=== PATIENT | female | born 1945 | race Hispanic/Latino ===

== ENCOUNTER 2021-01-09 10:00 | Inpatient (IN) | payer MEDICARE, MEDICAID, SELFPAY ==
[2021-01-09] VITALS (16 sets, daily range): BP systolic 80–149; BP diastolic 43–82; PULSE 90–106; RESP 28–42; TEMP 36–38.6; O2SAT 88–97; BMI 53.3
--- NOTE | ~2021-01-09 | XR_ITS ---
EXAMINATION: XR chest 1V portable DATE: 01/09/2021 11:02 INDICATION: Congestive heart failure, crackles and hypoxia TECHNIQUE: frontal view of the chest was obtained. COMPARISON: Chest radiograph dated 11/04/2018 FINDINGS: Opacities in the left lower lung zone and to lesser degree at the right lung base. No pleural effusio n or pneumothorax. Cardiomegaly. IMPRESSION: 1. Opacities in the bilateral lower lung zones, left greater than right which could represent atelect asis, pneumonia, pulmonary edema or some combination thereof. 2. Cardiomegaly. Reviewed, dictated and finalized at location A. IMPRESSION: 1. Opacities in the bilateral lower lung zones, left greater than right which c ould represent atelectasis, pneumonia, pulmonary edema or some combination ther eof. 2. Cardiomegaly.
--- NOTE | ~2021-01-09 | XR_ITS ---
EXAMINATION: XR chest 1V portable DATE: 01/14/2021 10:37 INDICATION: Shortness of breath. Pulmonary edema. TECHNIQUE: frontal view of the chest was obtained. COMPARISON: Chest radiograph dated 01/11/2021 FINDINGS: Increased consolidation at the left lung base. Otherwise no significant change in patchy airspace opa cities throughout the right lung and in the left mid and lower lung zones. No pneumothorax or definit marco pleural effusion. The cardiomediastinal silhouette is normal. Visualized bones and soft tissues a re unremarkable. IMPRESSION: 1. Unchanged patchy bilateral airspace opacities and increasing consolidation at the left lung base w hich could represent atelectasis and/or pneumonia. Reviewed, dictated and finalized at location A. IMPRESSION: 1. Unchanged patchy bilateral airspace opacities and increasing consolidation a t the left lung base which could represent atelectasis and/or pneumonia.
--- NOTE | ~2021-01-09 | XR_ITS ---
XR chest 1V portable DATE: 01/11/2021 13:12 INDICATION: Shortness of breath, wheezing TECHNIQUE: Portable AP chest on 01/11/2021 at 1308 hours COMPARISON: 01/20/2021 portable AP chest at 2241 hours FINDINGS: Cardiomegaly. Aortic arch calcification. There is pulmonary vascular congestion and redistribution. There are patchy bilateral pulmonary infil trates which are more prominent centrally and in the lung bases, especially at the left lung base, wh ich may be due to pulmonary edema. Prominence of the minor fissure suggests subpleural edema. Pneumon ia or less likely aspiration are not excluded. No significant pleural effusion. No pneumothorax. Diffuse osteopenia. Degenerative spurring of the thoracic spine. IMPRESSION: Cardiomegaly, pulmonary vascular congestion, possible minor fissure and bilateral pulmona ry infiltrates, suggesting congestive heart failure pulmonary edema Pneumonia is not excluded Reviewed, dictated and finalized at location A. IMPRESSION: Cardiomegaly, pulmonary vascular congestion, possible minor fissure and bilateral pulmonary infiltrates, suggesting congestive heart failure pulmo nary edema Pneumonia is not excluded
--- NOTE | ~2021-01-09 | CT_ITS ---
EXAMINATION: CT diagnostic chest wo con DATE: 01/10/2021 09:26 INDICATION: Shortness of breath TECHNIQUE: Computed tomography (CT) of the chest was performed without intravenous contrast. Automate d exposure control and iterative reconstruction technique were employed. Exam dose: 837.29 mGy-cm to hussein exam DLP. COMPARISON: 01/09/2021 portable AP chest FINDINGS: Left upper extremity PIC catheter in superior vena cava. There is thoracic aortic and great vessel and coronary artery calcification. No thoracic aortic aneur ysm. There is mild cardiomegaly. There is no pericardial effusion. No pleural effusion. There are scattered nonenlarged mediastinal lymph nodes. Again noted is prominent bilateral lower lobe atelectasis with air bronchograms, involving the medial basilar right lower lobe and to a greater extent the left lower lobe. Diffuse idiopathic skeletal hyperostosis of the thoracic spine. No suspicious osteolytic or osteoblas tic lesions are noted. IMPRESSION: Bilateral lower lobe atelectasis/infiltrate with air bronchograms, left greater than rig ht Reviewed, dictated and finalized at Location A. Reviewed, dictated and finalized at location A. IMPRESSION: Bilateral lower lobe atelectasis/infiltrate with air bronchograms, left greater than right
--- NOTE | ~2021-01-09 | XR_ITS ---
XR chest 1V portable DATE: 01/10/2021 22:44 INDICATION: Shortness of breath TECHNIQUE: Portable upright AP chest on 01/10/2021 at 2241 hours COMPARISON: 01/10/2021 CT chest 01/09/2021 portable AP chest FINDINGS: There are persistent relatively stable bilateral lower lobe infiltrates and/atelectasis, le ft greater than right. Aortic calcification. No pleural effusion or pneumothorax. Diffuse osteopenia. IMPRESSION: Persistent bilateral lower lobe infiltrates and/atelectasis, not significantly changed si nce 01/09/2021 Reviewed, dictated and finalized at location A. IMPRESSION: Persistent bilateral lower lobe infiltrates and/atelectasis, not si gnificantly changed since 01/09/2021
--- NOTE | ~2021-01-09 | US_ITS ---
EXAMINATION: US renal BI DATE: 01/09/2021 17:35 INDICATION: Acute kidney injury. TECHNIQUE: Multiple ultrasound grayscale images of the kidneys were obtained. COMPARISON: None. FINDINGS: The right kidney measures 10.3 x 4.6 x 5.5 cm. The left kidney measures 10.5 x 4.0 x 4.8 cm. The kidn eys demonstrate normal parenchymal echogenicity. There is no hydronephrosis. The bladder is decompres sed. IMPRESSION: 1. Normal kidneys. No hydronephrosis. Reviewed, dictated and finalized at location A.
--- NOTE | ~2021-01-09 | XR_ITS ---
EXAMINATION: XR chest PICC line DATE: 01/09/2021 18:16 INDICATION: Central line placement. TECHNIQUE: A single frontal view of the chest was obtained. COMPARISON: Chest single view at 10:52 AM FINDINGS: There are airspace opacities in right lower lung zone and left mid and lower lung zones. No pleural effusion or pneumothorax. The heart size is normal. A left upper extremity peripherally inse rted central venous catheter (PICC) is seen with tip at the superior cavoatrial junction. IMPRESSION: 1. PICC tip at the superior cavoatrial junction. 2. Stable airspace opacities in right lower lung zone and left mid and lower lung zones, consistent w ith atelectasis versus pneumonia. Reviewed, dictated and finalized at location A. IMPRESSION: 1. PICC tip at the superior cavoatrial junction. 2. Stable airspace opacities in right lower lung zone and left mid and lower alan ng zones, consistent with atelectasis versus pneumonia.
--- NOTE | 2021-01-09 10:19 | ECG_ITS ---
Measurements Intervals [place] Rate: 104 P: 16 MO: 128 QRS: -14 QRSD: 77 T: 58 QT: 361 QTc: 476 Interpretive Statements SINUS TACHYCARDIA INCOMPLETE RIGHT BUNDLE BRANCH BLOCK DELAYED PRECORDIAL R/S TRANSITION CONSIDER INFERIOR INFARCT, AGE INDETERMINATE BASELINE WANDER- I, II, III, AVR, AVL, AVF, V1-V6 ABNORMAL ECG Electronically Signed On 01-09-2021 10:31:31 CDT by Mustapha Woods D.O.
[2021-01-09 10:34] LABS: Hematocrit 32.7 % (37.0-47.0); Mean Corpuscular HGB Conc 30.6 g/dl (32-36); Mean Corpuscular Hemoglobin 27.5 pg (26-34); Mean Corpuscular Volume 90.1 fl (80-100); Platelet Count Result 297 k/mm3 (150-375); Red Blood Count 3.63 M/mm3 (4.2-5.4); Red Cell Distribution Width 14.1 % (11.5-14.5); White Blood Count 33.2 K/mm3 (4.5-10.0)
--- NOTE | 2021-01-09 10:38 | ED.SOB ---
HPI - SOB/Dyspnea General Chief Complaint: Shortness of Breath/Dyspnea Stated Complaint: hypoxic Time Seen by Provider: 01/09/21 10:25 Source: patient, family and RN notes reviewed Limitations: language barrier History of Present Illness HPI Narrative: Patient presents with increased, productive cough, general weakness and lethargy over the last 48 hours. Patient grand grand child tested positive for RSV recently. Patient is fully vaccinated for COVID-19, Ashish and Ashish last year. Patient on oxygen as needed, history of hypertension, hyperlipidemia, hypothyroidism, anxiety, depression. Patient also on water pills for leg edema and she not been taking it lately. Patient is on baby aspirin. No history of OR or stroke. Related Data Allergies Allergy/AdvReac Type Severity Reaction Status Date / Time codeine Allergy Unknown Nervousness Verified 02/07/18 22:50 Course Consultations Consultation #1: [facility], accepted patient consult for Dr. Lni Date: 01/09/21 Time: 11:32 Vital Signs Vital signs: Vital Signs Temperature 36.0 C L 01/09/21 10:13 Pulse Rate 106 H 01/09/21 10:13 Respiratory Rate 41 H 01/09/21 10:13 Blood Pressure 102/79 01/09/21 10:13 Pulse Oximetry 92 01/09/21 10:13 Temperature 36.0 C L 01/09/21 10:13 Pulse Rate 102 H 01/09/21 11:28 Respiratory Rate 42 H 01/09/21 11:28 Blood Pressure 104/51 L 01/09/21 11:28 Pulse Oximetry 95 01/09/21 11:28 MDM - SOB/Dyspnea Lab Data Result diagrams: 01/09/21 10:29 01/09/21 10:29 Labs: Lab Results 01/09/21 01/09/21 01/09/21 Range/Units 10:29 10:29 10:29 WBC 33.2 H (4.5-10.0) K/mm3 RBC 3.63 L (4.2-5.4) M/mm3 Hgb 10.0 L (12.0-15.0) g/dL Hct 32.7 L (37.0-47.0) % MCV 90.1 (80-100) fl MCH 27.5 (26-34) pg MCHC 30.6 L (32-36) g/dl RDW 14.1 (11.5-14.5) % Plt Count 297 (150-375) k/mm3 MPV 9.0 (7.4-10.4) fl Immature Gran % (Auto) Not Reportable Neut % (Auto) Not Reportable Lymph % (Auto) Not Reportable Garfield % (Auto) Not Reportable Eos % (Auto) Not Reportable Baso % (Auto) Not Reportable Lymph # (Auto) Not Reportable Garfield # (Auto) Not Reportable Eos # (Auto) Not Reportable Baso # (Auto) Not Reportable Abs Immat Gran (auto) Not Reportable Absolute Neuts (auto) Not Reportable Absolute Nucleated RBC Not Reportable Nucleated RBC % Not Reportable Platelet Estimate Pending PT 14.4 (11.1-14.7) Seconds INR 1.1 APTT 27.2 (22.3-36.8) SECONDS Sodium 133 L (137-145) mmol/L Potassium 4.5 (3.4-5.0) mmol/L Chloride 95 L (98-107) mmol/L Carbon Dioxide 24 (22-30) mmol/L Anion Gap 14 (8-16) mmol/L BUN 28 H (7-17) mg/dL Creatinine 2.80 H (0.7-1.0) mg/dL Estim Creat Clear Calc 20 ml/min Estimated GFR 17 L (59 - ) Glucose 77 (65-110) mg/dL Calcium 9.0 (8.4-10.2) mg/dL Magnesium (1.6-2.3) mg/dL Total Bilirubin (0.2-1.3) mg/dL Direct Bilirubin (0-0.3) mg/dL AST (14-36) U/L ALT (4-35) U/L Alkaline Phosphatase (38-126) U/L Troponin I 0.095 H* (0.000-0.034) ng/mL NT-Pro-B Natriuret Pep 09850 H (5-100) pg/mL Total Protein (6.3-8.2) g/dL Albumin (3.5-5.1) g/dL 01/09/21 01/09/21 Range/Units 10:29 10:29 WBC (4.5-10.0) K/mm3 RBC (4.2-5.4) M/mm3 Hgb (12.0-15.0) g/dL Hct (37.0-47.0) % MCV (80-100) fl MCH (26-34) pg MCHC (32-36) g/dl RDW (11.5-14.5) % Plt Count (150-375) k/mm3 MPV (7.4-10.4) fl Immature Gran % (Auto) Neut % (Auto) Lymph % (Auto) Garfield % (Auto) Eos % (Auto) Baso % (Auto) Lymph # (Auto) Garfield # (Auto) Eos # (Auto) Baso # (Auto) Abs Immat Gran (auto) Absolute Neuts (auto) Absolute Nucleated RBC Nucleated RBC % Platelet Estimate PT (11.1-14.7) Seconds INR
[2021-01-09 10:46] LABS: INR 1.1; Prothrombin Time 14.4 Seconds (11.1-14.7)
[2021-01-09 10:47] LABS: Partial Thromboplastin Time 27.2 SECONDS (22.3-36.8)
[2021-01-09 10:56] LABS: Anion Gap 14 mmol/L (8-16); Blood Urea Nitrogen 28 mg/dL (7-17); Carbon Dioxide 24 mmol/L (22-30); Chloride 95 mmol/L (98-107); Estimated CRCL calculation 20 ml/min; Estimated Glomerular Filt Rate 17; Glucose 77 mg/dL (65-110); Potassium 4.5 mmol/L (3.4-5.0); Sodium 133 mmol/L (137-145)
[2021-01-09 10:58] LABS: Alanine Aminotransferase 55 U/L (4-35); Albumin Level 3.8 g/dL (3.5-5.1); Alkaline Phosphatase 67 U/L (38-126); Aspartate Amino Transferase 84 U/L (14-36); Bilirubin,Total 1.9 mg/dL (0.2-1.3)
[2021-01-09 11:18] LABS: NT Pro B Type Natriuretic Pept 13000 pg/mL (5-100); Troponin I 0.095 ng/mL (0.000-0.034)
--- NOTE | 2021-01-09 11:23 | PCRCNOTE ---
G attempted by [address] Samuel bolaños to obtain.. Dr. Baker stated he will look at X-Ray.
[2021-01-09 11:30] LABS: Magnesium 1.5 mg/dL (1.6-2.3)
[2021-01-09 11:50] LABS: Band Neutrophils Percent 14 % (0-6); Lymphocytes Absolute Manual 3.65 K/mm3 (1.1-4.5); Metamyelocytes Percent 5 %; Monocytes Absolute Manual 0.33 K/mm3 (0.1-0.90); Monocytes Percent Manual 1 % (3-9); Neutrophils Absolute Manual 27.55 K/mm3 (1.7-7.2); Neutrophils Percent Manual 69 % (46-73); Total Cells Counted 100
[2021-01-09 11:51] LABS: Platelet Estimate Adequate (Adequate)
[2021-01-09 11:52] LABS: Hypochromasia 1+ (NORMAL)
[2021-01-09] MEDS: SODIUM CHLORIDE 0.9% IV 1,000 ML 999 ML IV CONT ×2 (12:18→15:13)
[2021-01-09 12:43] LABS: Lactic Acid Reflex 5.6 mmol/L (0.7-2.1)
--- NOTE | 2021-01-09 13:50 | WPDCNINT ---
Assessment and Plan Assessment and plan (1) Sepsis: Code(s): A41.9 - Sepsis, unspecified organism Status: Acute Assessment and Plan: Secondary to community-acquired pneumonia Patient has elevated BNP suggestive of history of congestive heart failure Conservative IV fluid in the form of 2 L bolus has been ordered and patient is receiving at this time Conservative maintenance IV fluids [place]et[place] evaluation on arrival to ICU for further fluid responsiveness May need vasopressors if blood pressure remains low despite IV fluids Monitor lactic acid level Check CT chest (2) Community acquired pneumonia: Qualifiers: Laterality: unspecified laterality Qualified Code(s): J18.9 - Pneumonia, unspecified organism Code(s): J18.9 - Pneumonia, unspecified organism Status: Acute Assessment and Plan: History and presentation consistent with community-acquired pneumonia Blood cultures Sputum cultures the patient is able to give sputum Check RSV and influenza COVID rule out Rocephin azithromycin (3) Congestive heart failure: Qualifiers: Heart failure chronicity: unspecified Heart failure type: unspecified Qualified Code(s): I50.9 - Heart failure, unspecified Code(s): I50.9 - Heart failure, unspecified Status: Acute Assessment and Plan: Patient has elevated BNP but likely intravascularly hypovolemic it as she is hypertensive and has no significant edema on her legs Was on Lasix Check echo Conservative IV fluids for hypertension (4) Suspected COVID-19 virus infection: Code(s): Z20.822 - Contact with and (suspected) exposure to COVID-19 Status: Acute Assessment and Plan: COVID-19 suspected. SARS-CoV-2 PCR sent and results pending Patient is in Airborne, Droplet and Contact Isolation (5) Acute respiratory failure: Qualifiers: Respiratory failure complication: hypoxia Qualified Code(s): J96.01 - Acute respiratory failure with hypoxia Code(s): J96.00 - Acute respiratory failure, unspecified whether with hypoxia or hypercapnia Status: Acute Assessment and Plan: Secondary to community-acquired pneumonia with questionable CHF CT chest ordered and pending at this time in the ER Patient currently on BiPAP ABG ordered and pending Patient is DNR DNI (6) Acute kidney injury: Code(s): N17.9 - Acute kidney failure, unspecified Status: Acute Assessment and Plan: Likely prerenal secondary to hypovolemia sepsis and hypertension 2 L IV fluid bolus and maintenance IV fluids Check renal ultrasound Check CK Monitor creatinine urine output and electrolytes (7) Elevated troponin: Code(s): R77.8 - Other specified abnormalities of plasma proteins Status: Acute Assessment and Plan: Likely secondary to acute renal failure. Patient denies any chest pain EKG reviewed and shows no ST elevation Serial troponin Aspirin Echocardiogram Additional Plan DVT prophylaxis -Lovenox Stress ulcer prophylaxis - NA Nutrition -NPO this time Code Status -patient is DNR DNI which I have confirmed with patient's daughter at bedside Family updated at bedside Total Critical Care Time - 45 minutes Due to a high probability of clinically significant, life threatening deterioration, the patient required my highest level of preparedness to intervene emergently and I personally spent this critical care time directly and personally managing the patient. This critical care time included obtaining a history; examining the patient; pulse oximetry; ordering and review of studies; arranging urgent treatment with development of a management plan; evaluation of patient's response to treatment; frequent reassessment; and discussions with other providers. It was exclusive of separately billable procedures and treating other patients and teaching time. Please see Assessment and Plan section and the rest of the note for further informat
--- NOTE | 2021-01-09 14:37 | PM.IMHP ---
H&P: HPI History of Present Illness Date/Time: 01/09/21 14:37 this is a 75-year-old female patient who is Syriac-speaking. The daughter it was at the bedside in the emergency room and was giving the information. When I assessed the patient was on a BiPAP. According to the daughter the patient has not been eating very well for the last 2 days. The patient had increased productive cough and some generalized weakness as well as lethargy over the last 48 hours. the patient has been fully vaccinated for COVID-19 with the [employer] last year. The patient does have p.r.n. oxygen at. She has a history of hypertension, hyperlipidemia, hypothyroidism, anxiety and depression. The patient also takes water pills for leg edema but has not been taking them lately. She has no history of any myocardial infarction or congestive heart failure. Her chest x-ray was read as opacities in the bilateral lower lung zones, left greater than right which could represent atelectasis, pneumonia, pulmonary edema or some combination thereof. Cardiomegaly. The patient has been swabbed for COVID-19 and was placed on isolation the emergency room. The patient had has been on a BiPAP 03/09 with a rate of 4 with 30% oxygen. The patient is lethargic and the daughters answering questions. Her blood pressure was noted to be 85/48 with respirations of 40. White counts noted to be 33.2. BUN 28 with creatinine at 2.8. GFR 17. Lactic 5.6. Liver enzymes are slightly elevated AST is 84 ALT is 55. Troponin is 0.095. Total creatinine kinase is pending. A [place] catheter was placed in the emergency room and very little urine came out. The patient is severely dehydrated. The patient was given an IV bolus in the emergency room as well as azithromycin Rocephin. I spoke with the daughter who is the durable power health care attorney for healthcare and she stated that her mother is a DNR /DNI but would allow vasopressors. The daughter gave us permission to place a central line if needed. The patient is being admitted to inpatient services on the date of service of 01/09/2021. Chief Complaint: nausea with weakness Review of Systems Review of Systems: All systems reviewed & are unremarkable except as noted in HPI and below Constitutional: Constitutional: Reports as per HPI and Reports no additional constitutional complaints Eyes: Eyes: Reports as per HPI and Reports no additional eye complaints ENT: Reports system reviewed and no additional complaints, except as documented and Reports Normal hearing present Cardiovascular: Cardiovascular: Reports no additional cardiovascular complaints Respiratory: Respiratory: Reports no additional respiratory complaints and Reports no additional respiratory complaints Gastrointestinal: Gastrointestinal: Reports as per HPI and Reports no additional gastrointestinal complaints Musculoskeletal: Musculoskeletal: Reports no additional musculoskeletal complaints Integumentary/Breasts: Skin/Breast: Reports system reviewed and no additional complaints, except as docu and Reports as per HPI Neurologic: Reports system reviewed and no additional complaints, except as documented, Reports as per HPI and Reports Normal hearing present Psychiatric: Psychiatric: Reports no additional psychiatric complaints and Reports as per HPI Endocrine: Endocrine: Reports no additional endocrine complaints Hematologic/Lymphatic: Hematologic/Lymphatic: Reports no additional hematologic/lymphatic complaints Allergic/Immunologic: Allergic/Immunologic: Reports no additional allergic/immunologic complaints PMFSH Past Medical History Medical History (Updated 01/09/21 @ 14:46 by Kimber Dykes NP) Anxiety and depression Hypertension Hypothyroidism Oxygen dependent Surgical History Surgical History (Updated 01/09/21 @ 14:46 by Kimber Dykes NP) H/O tubal ligation Hx of cholecystectomy Total knee replacement status Family History Family History (Updated 01/09/21
--- NOTE | 2021-01-09 14:43 | PC.NURSE ---
Pt incontinent diarrhea x2. Linens changed. patient repositioned.
[2021-01-09 14:44] LABS: Creatine Kinase 70 U/L (30-135)
[2021-01-09 15:30] LABS: Reflex Lactic Acid Yes or No Add Lactic
[2021-01-09 15:31] LABS: Glucose Point of Care 75 mg/dl (65-105)
[2021-01-09 16:10] LABS: Add Urine Microscopic? YES; Appearance Urine Cloudy (Clear); Bacteria Urine Trace /hpf; Bilirubin Urine 1+ (Negative); Blood Urine 1+ (Negative); Color Urine Amber (Yellow); Glucose Urine UA Negative (Negative); Ketones Urine Negative (Negative); Leukocyte Esterase Ur 2+ LEU/UL (Negative); Nitrate Urine Negative (Negative); Protein Urine 2+ mg/dL (Negative); RBC Urine 51-75 /hpf (0-2); Specific Grav Ur 1.025 (1.001-1.035); Squamous Epithelial Cell Urine Many /hpf (Few); WBC Clumps Urine Present /HPF; WBC Urine >75 /hpf
[2021-01-09 17:32] LABS: Lactic Acid Reflex 2.9 mmol/L (0.7-2.1)
[2021-01-09] MEDS: DEXTROSE 50% 25 GM/50 ML SYRINGE IV PUSH (17:33)
[2021-01-09 17:50] LABS: Troponin I 0.057 ng/mL (0.000-0.034)
[2021-01-09 18:08] LABS: Glucose Point of Care 114 mg/dl (65-105)
[2021-01-09 18:08] LABS: Glucose Point of Care 58 mg/dl (65-105)
[2021-01-09] MEDS: SODIUM CHLORIDE 0.9% IV 1,000 ML 100 ML IV CONT (18:28)
[2021-01-09] MEDS: MAGNESIUM SULF 2 GM/WATER 50ML 2 GM/50 ML BAG IVPB (18:29)
[2021-01-09] MEDS: CENTRAL LINE FLUSH 10 ML IV PUSH (21:21)
[2021-01-09 23:41] LABS: Glucose Point of Care 74 mg/dl (65-105)
[2021-01-10] VITALS (24 sets, daily range): BP systolic 91–116; BP diastolic 46–70; PULSE 72–96; RESP 16–36; TEMP 36.1–37.1; O2SAT 92–99
--- NOTE | 2021-01-10 | ECHO_ITS ---
Patient Info Name: Shaina Espinosa Age: 75 years : 1945 Gender: Female Ht: 60 in Wt: 269 lbs BSA: 2.36 m2 HR: 90 bpm BP: 133 / 69 mmHg Heart Rhythm: Sinus Rhythm Technical Quality: Poor Exam Date: 01/10/2021 2:00 PM Exam Location: [facility]am Room: ICU9 Patient Status: Inpatient Admit Date: 01/09/2021 Staff Ordering Physician: Julius Garcia MD Digital Marketing Manager: Macarena Wilson RDCS Attending Provider: Charissa Oviedo MD Exam Type: CA echo dop color flow w con Study Info Indications - chf sob mcdonough Complete two-dimensional, color flow and Doppler transthoracic echocardiogram is performed with contrast to opacify the left ventricle and to improve the deliniation of the left ventricle endocardial borders. Contrast/Agitated Saline Contrast/Ag. Saline: Definity Amount: 1.00 ml Existing IV Access: Yes Reason for Poor Study: patient body habitus Summary 1. Technically difficult study with limited views. Regional wall motion assessment limited due to poor endomyocardial border definition despite definity echo contrast enhancement. 2. Left ventricular chamber dimension is normal. 3. Left ventricular systolic function is normal, estimated at >70%. 4. There is mildly increased left ventricular wall thickness. 5. There is mild aortic valve stenosis with a peak velocity of 226.94 cm/s, mean gradient of 11 mmHg, and aortic valve area of 1.60 cm2. 6. There is trace tricuspid valve regurgitation. 7. No pulmonary hypertension, estimated pulmonary arterial systolic pressure is 32 mmHg. Left Ventricle Left ventricular chamber dimension is normal. Left ventricular systolic function is normal, estimated at >70%. There is mildly increased left ventricular wall thickness. The left ventricular diastolic function is grade I diastolic dysfunction. Technically difficult study with limited views. Regional wall motion assessment limited due to poor endomyocardial border definition despite definity echo contrast enhancement. Right Ventricle Right ventricular chamber dimension is normal. Right ventricular systolic function is normal. Left Atria Left atrial chamber dimension is not well visualized. Right Atria Right atrial chamber dimension is not well visualized. Aortic Valve The aortic valve is not well visualized. There is mild aortic valve stenosis with a peak velocity of 226.94 cm/s, mean gradient of 11 mmHg, and aortic valve area of 1.60 cm2. Pulmonic Valve The pulmonic valve is not well visualized. Mitral Valve The mitral valve has thickened leaflets. There is trace mitral valve regurgitation. The mitral valve annulus is moderately calcified. Tricuspid Valve The tricuspid valve leaflets are not well visualized. There is trace tricuspid valve regurgitation. No pulmonary hypertension, estimated pulmonary arterial systolic pressure is 32 mmHg. Pericardium/Pleural The pericardium appears epicardial fat pad. There is small pericardial effusion. Aorta The aortic root size at the sinus of Valsalva is normal. There is mild-moderate aortic atherosclerosis. Left Ventricular Outflow Tract Name Value Normal LVOT 2D LVOT Diameter 1.9
[2021-01-10 05:10] LABS: Basophils Absolute Auto 0.1 K/mm3 (0.0-0.1); Basophils Percent Auto 0.3 % (0.2-1.2); Eosinophils Absolute Auto 0.1 K/mm3 (0-0.3); Eosinophils Percent Auto 0.6 % (0-4.4); Hematocrit 26.7 % (37.0-47.0); Hemoglobin 8.5 g/dL (12.0-15.0); Immature Granulocyte Absolute 0.12 K/mm3 (0.00-0.031); Immature Granulocyte Percent A 0.6 % (0-0.5); Lymphocytes Absolute Auto 1.03 K/mm3 (0.9-3.2); Lymphocytes Percent Auto 5.2 % (18.3-44.2); Mean Corpuscular HGB Conc 31.8 g/dl (32-36); Mean Corpuscular Hemoglobin 27.8 pg (26-34); Mean Corpuscular Volume 87.3 fl (80-100); Mean Platelet Volume 9.2 fl (7.4-10.4); Monocytes Absolute Auto 0.6 K/mm3 (0.1-0.6); Monocytes Percent Auto 3.2 % (2.6-8.5); Neutrophils Absolute Auto 17.7 K/mm3 (1.3-6.7); Neutrophils Percent Auto 90.1 % (45.5-73.1); Platelet Count Result 239 k/mm3 (150-375); Red Blood Count 3.06 M/mm3 (4.2-5.4); Red Cell Distribution Width 13.9 % (11.5-14.5); White Blood Count 19.6 K/mm3 (4.5-10.0)
[2021-01-10 05:19] LABS: Influenza Control Positive
[2021-01-10 05:32] LABS: Alanine Aminotransferase 52 U/L (4-35); Alkaline Phosphatase 64 U/L (38-126); Anion Gap 7 mmol/L (8-16); Aspartate Amino Transferase 64 U/L (14-36); Bilirubin,Total 1.4 mg/dL (0.2-1.3); Blood Urea Nitrogen 34 mg/dL (7-17); Calcium 7.6 mg/dL (8.4-10.2); Carbon Dioxide 22 mmol/L (22-30); Chloride 104 mmol/L (98-107); Estimated CRCL calculation 28 ml/min; Estimated Glomerular Filt Rate 26; Glucose 85 mg/dL (65-110); Magnesium 2.5 mg/dL (1.6-2.3); Phosphorus 4.6 mg/dL (2.5-4.5); Sodium 133 mmol/L (137-145)
[2021-01-10 05:42] LABS: Alveolar/Arterial O2 Gradient 154.4 mmHg; Base Excess ABG -2.9 mEq/l (+/-2.0); Carboxyhemoglobin 0.7 % THb (0-2.0); Fractional Inspired Oxygen 36 %; HCO3 ABG 21.5 mEq/l (22.0-26.0); Methemoglobin ABG 0.4 %THb (0-1.5); Oxygen Content ABG 14.3 %vol (16.0-22.0); Oxygen Saturation ABG 90.9 % (95.0-100.0); Oxyhemoglobin 87.7 % THb (90.0-100.0); PCO2 ABG 36.5 mmHg (35.0-45.0); PO2 ABG 59.9 mmHg (80.0-100.0); PO2 FiO2 Ratio Arterial Blood 1.66 %; Reduced Hemoglobin 11.2 %THb (0-5.0); Total Hemoglobin 11.6 g/dL (12.0-18.0); pH ABG 7.389 (7.350-7.450)
[2021-01-10 05:43] LABS: Device NASAL CANNULA; Modified Allen's Test Pass; Site Drawn LEFT RADIAL
[2021-01-10] MEDS: CENTRAL LINE FLUSH 10 ML IV PUSH ×3 (06:02→22:06)
[2021-01-10] MEDS: LEVOTHYROXINE SODIUM 125 MCG TABLET PO (06:02)
--- NOTE | 2021-01-10 09:52 | WPDINTPN ---
Progress Note: A&P Assessment and Plan (1) Sepsis: Code(s): A41.9 - Sepsis, unspecified organism Status: Acute Assessment and Plan: Secondary to community-acquired pneumonia Patient has elevated BNP suggestive of history of congestive heart failure Patient was ordered conservative IV fluid in the form of 2 L bolus on presentation but only received 1 L in the ER Continue Conservative maintenance IV fluids [place] evaluation on arrival to ICU for further fluid responsiveness and she was given another 1L fluid bolus that was pending from ED She has not required vasopressors Lactic acid level improved after the fluid bolus and will recheck again today CT chest was not performed in ER and was done this morning. Report pending but my review suggests left lower lobe pneumonia. I will give another 1 L saline (2) Community acquired pneumonia: Qualifiers: Laterality: unspecified laterality Qualified Code(s): J18.9 - Pneumonia, unspecified organism Code(s): J18.9 - Pneumonia, unspecified organism Status: Acute Assessment and Plan: History and presentation consistent with community-acquired pneumonia and CT suggests left lower lobe pneumonia Blood cultures Sputum cultures the patient is able to give sputum Check RSV and influenza COVID rule out Rocephin azithromycin Currently on 4 L nasal cannula (3) Congestive heart failure: Qualifiers: Heart failure chronicity: unspecified Heart failure type: unspecified Qualified Code(s): I50.9 - Heart failure, unspecified Code(s): I50.9 - Heart failure, unspecified Status: Acute Assessment and Plan: Patient has elevated BNP but likely intravascularly hypovolemic it as she is hypertensive and has no significant edema on her legs She Was on diuretics at home but currently on hold Pending echo Conservative IV fluids for hypotension and USMAN (4) Suspected COVID-19 virus infection: Code(s): Z20.822 - Contact with and (suspected) exposure to COVID-19 Status: Acute Assessment and Plan: COVID-19 suspected. SARS-CoV-2 PCR sent and results pending Patient is in Airborne, Droplet and Contact Isolation (5) Acute respiratory failure: Qualifiers: Respiratory failure complication: hypoxia Qualified Code(s): J96.01 - Acute respiratory failure with hypoxia Code(s): J96.00 - Acute respiratory failure, unspecified whether with hypoxia or hypercapnia Status: Acute Assessment and Plan: Secondary to community-acquired pneumonia with questionable CHF CT chest report pending Currently off of BiPAP and on 4 L nasal cannula ABG reviewed Patient is DNR DNI (6) Acute kidney injury: Code(s): N17.9 - Acute kidney failure, unspecified Status: Acute Assessment and Plan: Likely prerenal secondary to hypovolemia sepsis and hypertension 2 L IV fluid bolus and maintenance IV fluids Renal ultrasound showed no hydronephrosis Normal CK Monitor creatinine urine output and electrolytes (7) Elevated troponin: Code(s): R77.8 - Other specified abnormalities of plasma proteins Status: Acute Assessment and Plan: Likely secondary to acute renal failure. Patient denies any chest pain EKG reviewed and shows no ST elevation Serial troponin has shown flat and downward trend Continue Aspirin Echocardiogram Resume statin Hold JORY-inhibitor due to acute kidney injury (8) Hypothyroidism: Code(s): E03.9 - Hypothyroidism, unspecified Status: Chronic Assessment and Plan: Continue levothyroxine Additional Plan DVT prophylaxis -Lovenox Nutrition -diet Code Status -patient is DNR DNI which I have confirmed with patient's daughter at bedside IS, up in chair, PT OT Subjective Date/time seen: 01/10/21 09:52 She states she feels better today. Speaks some [place]. Still has cough unable to cough up any sputum. Denies any shortness of breath or pain. No fev
[2021-01-10] MEDS: ASPIRIN 300 MG SUPPOSITORY RECTAL (09:55)
[2021-01-10] MEDS: FAMOTIDINE 20 MG TABLET PO ×2 (09:56→17:13)
[2021-01-10] MEDS: ENOXAPARIN 30 MG/0.3 ML SYRINGE SUB-Q (09:56)
[2021-01-10] MEDS: SERTRALINE HCL 50 MG TABLET PO (09:56)
[2021-01-10] MEDS: BENZONATATE 100 MG CAPSULE 200 MG PO (09:57)
[2021-01-10] MEDS: SODIUM CHLORIDE 0.9% IV 1,000 ML 999 ML IV CONT (10:22)
[2021-01-10] MEDS: SODIUM CHLORIDE 0.9% IV 1,000 ML 125 ML IV CONT ×2 (11:05→18:45)
--- NOTE | 2021-01-10 11:29 | PM.IMPN ---
Progress Note: A&P Additional Plan START OF DOCTOR JOAQUÍN?S PROGRESS NOTE Subjective: Overnight the patient complains of feeling cold and of back pain. At the present time she offers no complaints. She denies fever, nausea, vomiting, wheeze, abdominal pain, chest pain. I have explained to the patient current medical condition plan of care I have answered all questions Objective: General: -Alert -No acute distress -No dyspnea -No tachypnea -obese Heart: -Regular rate -Regular rhythm -No murmurs -No gallops -No rubs Lungs: -No wheeze -bilateral rhonchi present -No rales Abdomen: -Normal bowel sounds in all four quadrants -No rebound -No guarding -No tenderness Extremities: -2/4 pulse in all four extremities -No clubbing -No cyanosis -No edema Additional Details / Additional Findings / Exceptions / Miscellaneous: Pertinent Laboratory Results / Pertinent Radiology Results / Pertinent Diagnostic Results / Pertinent Vital Signs: Respirations 28, 96% on 4 L via nasal cannula, white blood count 19.6, hemoglobin 8.5, sodium 133, creatinine 1.9, total bilirubin is 1.4 Assessment / Plan: Pneumonia. A Zithromax 500 mg IV daily plus Rocephin 1 g IV daily plus Proventil HFA: 90 mg per spray: 2+ q.4 hours Urinary tract infection. Rocephin 1 g IV daily Chronic respiratory failure of uncertain etiology for which patient uses oxygen at home. I will attempted to determine her home oxygen flow rate Obesity hypoventilation syndrome Obesity. Patient counseled regarding lifestyle modification Hypertension Hyperlipidemia. Zocor 20 mg p.o. q.h.s. Hypothyroidism. Synthroid 125 mg p.o. daily Anxiety Depression. Zoloft 50 mg p.o. daily Anemia. Will monitor hemoglobin levels intermittently. Check serum ferritin, iron panel, fecal occult blood Hyponatremia. Monitor sodium levels intermittently Hypomagnesemia, resolved Acute renal insufficiency. Will monitor creatinine intermittently. Bilateral renal ultrasound unremarkable. Albumin 50 g IV q.8 hours Transaminitis. Will monitor LFTs periodically with CMP. If no improvement/resolution will check right upper quadrant ultrasound Elevated troponin, flat. This may be false elevation secondary to acute renal insufficiency. Aspirin 81 mg p.o. daily plus Zocor 20 mg p.o. q.h.s. plus metoprolol 12.5 mg p.o. b.i.d. GI prophylaxis. Pepcid 20 mg p.o. b.i.d. DVT prophylaxis. Lovenox 30 mg subcutaneously daily Disposition: END OF DOCTOR JOAQUÍN?S PROGRESS NOTE Subjective Date/time seen: 01/10/21 11:29 Objective Data Vital Signs Vital Signs: Vital Signs - 24 hr 01/09/21 12:15 01/09/21 12:19 01/09/21 13:21 Temperature 101.4 F H Pulse Rate 105 H 103 H 94 Respiratory Rate 42 H 40 H 40 H Blood Pressure 88/55 L 85/48 L Pulse Oximetry 92 92 88 L 01/09/21 15:18 01/09/21 15:19 01/09/21 15:30 Temperature 100.2 F H 100.0 F H Pulse Rate 92 94 Respiratory Rate 32 H 34 H Blood Pressure 80/65 L 110/70 Pulse Oximetry 88 L 91 94 01/09/21 16:16 01/09/21 16:41 01/09/21 17:00 Temperature 99.9 F H 98.8 F Pulse Rate 95 98 Respiratory Rate 28 H 36 H Blood Pressure 120/75 149/82 H Pulse Oximetry 94 93 97 01/09/21 18:00 01/09/21 20:00 01/09/21 21:12 Temperature 99 F Pulse Rate 93 90 Respiratory Rate 32 H 36 H Blood Pressure 116/59 L 134/60 Pulse Oximetry 96 96 96 01/09/21 22:00 01/09/21 22:40 01/10/21 00:00 Temperature 98.4 F Pulse Rate 95 94 Respiratory Rate 34 H 32 H Blood Pressure 92/43 L 98/54 L Pulse Oximetry 94 92 94 01/10/21 00:36 01/10/21 02:00 01/10/21 04:00 Temperature 98.3 F Pulse Rate 94 94 Respiratory Rate 30 H 34 H Blood Pressure 91/47 L 102/46 L Pulse Oximetry 95 93 93 01/10/21 06:00 01/10/21 08:00 01/10/21 10:00 Temperature 98.5 F Pulse Rate 95 92 94 Respiratory Rate 36 H 32 H 28 H Blood Pressure 109/53 L 106/50 L 105/47 L Pulse Ox
[2021-01-10 11:40] LABS: Glucose Point of Care 92 mg/dl (65-105)
[2021-01-10] MEDS: ALBUTEROL SULFATE (*SP) AEROSOL 1 PUFF 2 PUFF INHALATION ×3 (12:47→20:27)
[2021-01-10 13:02] LABS: Hemoglobin A1C 5.5 % (<5.7)
[2021-01-10 13:03] LABS: Lactic Acid Reflex 1.1 mmol/L (0.7-2.1)
[2021-01-10 13:53] LABS: Iron 80 ug/dL (37-170)
[2021-01-10 14:02] LABS: Percent Iron Saturation 33 % (20-50)
[2021-01-10] MEDS: ALBUMIN HUMAN 25% 25 GM/100 ML 200 ML IVPB ×2 (14:30→22:06)
[2021-01-10 17:41] LABS: Glucose Point of Care 107 mg/dl (65-105)
--- NOTE | 2021-01-10 17:51 | PC.NURSE ---
This patient, Shaina Espinosa, was received from [ ICU 9 ] on 01/10/21 at 1750. Patient/family oriented to unit policies and routines
[2021-01-10 18:06] LABS: SARS-CoV-2 RNA PCR Negative
--- NOTE | 2021-01-10 18:39 | PC.NURSE ---
This patient, Shaina Espinosa, was transferred to [ imu 212] on 01/10/21 at 1720. Personal belongings sent with patient. Report given to [abraham german rn ]. Appropriate documentation sent with patient. family notified.
[2021-01-10] MEDS: METOPROLOL TARTRATE 12.5 MG TABLET PO (20:42)
[2021-01-11] VITALS (37 sets, daily range): BP systolic 105–144; BP diastolic 39–66; PULSE 62–91; RESP 18–30; TEMP 35.7–37; O2SAT 92–100; BMI 10.0
[2021-01-11 00:04] LABS: Glucose Point of Care 105 mg/dl (65-105)
[2021-01-11] MEDS: FUROSEMIDE INJ 40 MG/4 ML VIAL 20 MG IV PUSH (00:07)
[2021-01-11] MEDS: ALBUTEROL SULFATE NEB 2.5 MG/0.5 ML INH INHALATION ×4 (01:37→20:47)
[2021-01-11] MEDS: IPRATROPIUM BR 0.02% INH SOLN 0.5 MG/2.5 ML VIAL INHALATION ×4 (01:37→20:47)
[2021-01-11] MEDS: SODIUM CHLORIDE 0.9% IV 1,000 ML 75 ML IV CONT (05:32)
[2021-01-11] MEDS: LEVOTHYROXINE SODIUM 125 MCG TABLET PO (05:32)
[2021-01-11] MEDS: CENTRAL LINE FLUSH 10 ML IV PUSH ×3 (05:32→22:43)
[2021-01-11 05:55] LABS: Basophils Absolute Auto 0.1 K/mm3 (0.0-0.1); Basophils Percent Auto 0.4 % (0.2-1.2); Eosinophils Absolute Auto 0.2 K/mm3 (0-0.3); Eosinophils Percent Auto 1.3 % (0-4.4); Hematocrit 21.9 % (37.0-47.0); Immature Granulocyte Absolute 0.07 K/mm3 (0.00-0.031); Immature Granulocyte Percent A 0.6 % (0-0.5); Lymphocytes Percent Auto 7.3 % (18.3-44.2); Mean Corpuscular HGB Conc 31.1 g/dl (32-36); Mean Corpuscular Hemoglobin 27.8 pg (26-34); Mean Corpuscular Volume 89.4 fl (80-100); Mean Platelet Volume 9.1 fl (7.4-10.4); Monocytes Absolute Auto 0.6 K/mm3 (0.1-0.6); Monocytes Percent Auto 4.9 % (2.6-8.5); Neutrophils Absolute Auto 10.5 K/mm3 (1.3-6.7); Neutrophils Percent Auto 85.5 % (45.5-73.1); Platelet Count Result 171 k/mm3 (150-375); Red Blood Count 2.45 M/mm3 (4.2-5.4); Red Cell Distribution Width 14.1 % (11.5-14.5); White Blood Count 12.3 K/mm3 (4.5-10.0)
[2021-01-11] MEDS: ALBUMIN HUMAN 25% 25 GM/100 ML 200 ML IVPB ×2 (05:59→14:41)
[2021-01-11 06:05] LABS: Alanine Aminotransferase 33 U/L (4-35); Albumin Level 3.9 g/dL (3.5-5.1); Alkaline Phosphatase 50 U/L (38-126); Anion Gap 7 mmol/L (8-16); Aspartate Amino Transferase 36 U/L (14-36); Bilirubin,Total 0.5 mg/dL (0.2-1.3); Blood Urea Nitrogen 25 mg/dL (7-17); Carbon Dioxide 27 mmol/L (22-30); Chloride 105 mmol/L (98-107); Estimated CRCL calculation 45 ml/min; Estimated Glomerular Filt Rate 44; Glucose 103 mg/dL (65-110); Magnesium 2.2 mg/dL (1.6-2.3); Phosphorus 3.4 mg/dL (2.5-4.5); Potassium 3.6 mmol/L (3.4-5.0); Sodium 139 mmol/L (137-145)
[2021-01-11 07:10] LABS: Hemoglobin 6.8 g/dL (12.0-15.0)
--- NOTE | 2021-01-11 08:08 | PM.IMPN ---
Progress Note: A&P Additional Plan START OF DOCTOR JOAQUÍN?S PROGRESS NOTE Subjective: The patient endorses no complaints at this time. She states that her respiratory status has improved compared to my encounter with her on January 10, 2021. She currently rates her respiratory status as a 10/10 attends her baseline. She denies fever, rigors, nausea, vomiting, cough, wheeze, abdominal pain, chest pain, or any other concerns or complaints. I have explained to the patient her current medical condition plan of care and I have answered all her questions Objective: General: -Alert -No acute distress -No dyspnea -No tachypnea -obese Heart: -Regular rate -Regular rhythm -No murmurs -No gallops -No rubs Lungs: -bilateral wheeze present -no rhonchi -No rales Abdomen: -Normal bowel sounds in all four quadrants -No rebound -No guarding -No tenderness Extremities: -2/4 pulse in all four extremities -No clubbing -No cyanosis -No edema Additional Details / Additional Findings / Exceptions / Miscellaneous: Pertinent Laboratory Results / Pertinent Radiology Results / Pertinent Diagnostic Results / Pertinent Vital Signs: Patient saturating 93% on BiPAP, white blood count 12.3, hemoglobin 6.8 Assessment / Plan: Pneumonia. A Zithromax 500 mg IV daily plus Rocephin 1 g IV daily plus DuoNeb q.6 hours Urinary tract infection. Rocephin 1 g IV daily Chronic respiratory failure of uncertain etiology for which patient uses oxygen at home. I will attempted to determine her home oxygen flow rate Obesity hypoventilation syndrome Obesity. Patient counseled regarding lifestyle modification Hypertension Hyperlipidemia. Zocor 20 mg p.o. q.h.s. Hypothyroidism. Synthroid 125 mg p.o. daily Anxiety Depression. Zoloft 50 mg p.o. daily Acute anemia/Anemia of chronic disease. Will monitor hemoglobin levels intermittently. Monitor CBC q.8 hours Hyponatremia. Monitor sodium levels intermittently Hypomagnesemia, resolved Acute renal insufficiency. Will monitor creatinine intermittently. Bilateral renal ultrasound unremarkable. Albumin 50 g IV q.8 hours Transaminitis. Will monitor LFTs periodically with CMP. If no improvement/resolution will check right upper quadrant ultrasound Elevated troponin, flat. This may be false elevation secondary to acute renal insufficiency. Aspirin 81 mg p.o. daily being held secondary to anemia. Zocor 20 mg p.o. q.h.s. plus metoprolol 12.5 mg p.o. b.i.d. GI prophylaxis. Pepcid 20 mg p.o. b.i.d. DVT prophylaxis. Bilateral SCD Disposition: END OF DOCTOR JOAQUÍN?S PROGRESS NOTE Subjective Date/time seen: 01/11/21 08:08 Objective Data Vital Signs Vital Signs: Vital Signs - 24 hr 01/10/21 10:00 01/10/21 10:48 01/10/21 11:26 Temperature Pulse Rate 94 Respiratory Rate 28 H Blood Pressure 105/47 L Pulse Oximetry 93 96 96 01/10/21 12:00 01/10/21 12:16 01/10/21 12:48 Temperature 98.7 F Pulse Rate 88 92 Respiratory Rate 28 H 36 H Blood Pressure 93/50 L Pulse Oximetry 97 96 01/10/21 14:00 01/10/21 15:50 01/10/21 16:00 Temperature 98.4 F Pulse Rate 86 89 86 Respiratory Rate 26 H 33 H 24 H Blood Pressure 113/48 L 116/54 L Pulse Oximetry 95 93 01/10/21 18:00 01/10/21 20:00 01/10/21 20:28 Temperature 96.9 F L Pulse Rate 84 87 Respiratory Rate 20 Blood Pressure 104/49 L Pulse Oximetry 93 97 01/10/21 20:42 01/10/21 22:00 01/10/21 23:02 Temperature Pulse Rate 88 72 92 Respiratory Rate Blood Pressure Pulse Oximetry 95 01/10/21 23:08 01/10/21 23:12 01/10/21 23:58 Temperature 97.6 F Pulse Rate 85 85 88 Respiratory Rate 16 20 Blood Pressure 111/70 Pulse Oximetry 95 93 96 01/11/21 00:00 01/11/21 01:38 01/11/21 01:45 Temperature Pulse Rate 81 75 78 Respiratory Rate 18 18 Blood Pressure Pulse Oximetry 98 01/11/21 01:46 01/11/21 02:00 01/11/21 03:53
[2021-01-11] MEDS: METOPROLOL TARTRATE 12.5 MG TABLET PO ×2 (08:13→22:42)
[2021-01-11] MEDS: SIMVASTATIN 20 MG TABLET PO (08:13)
[2021-01-11] MEDS: SERTRALINE HCL 50 MG TABLET PO (08:13)
[2021-01-11] MEDS: FAMOTIDINE 20 MG TABLET PO ×2 (08:14→16:12)
[2021-01-11 11:36] LABS: Glucose Point of Care 124 mg/dl (65-105)
[2021-01-11 12:33] LABS: Basophils Percent Auto 0.3 % (0.2-1.2); Eosinophils Absolute Auto 0.2 K/mm3 (0-0.3); Eosinophils Percent Auto 1.3 % (0-4.4); Hematocrit 21.1 % (37.0-47.0); Immature Granulocyte Absolute 0.06 K/mm3 (0.00-0.031); Immature Granulocyte Percent A 0.5 % (0-0.5); Lymphocytes Percent Auto 7.5 % (18.3-44.2); Mean Corpuscular HGB Conc 30.8 g/dl (32-36); Mean Corpuscular Hemoglobin 27.2 pg (26-34); Mean Corpuscular Volume 88.3 fl (80-100); Mean Platelet Volume 9.3 fl (7.4-10.4); Monocytes Absolute Auto 0.6 K/mm3 (0.1-0.6); Monocytes Percent Auto 4.7 % (2.6-8.5); Neutrophils Absolute Auto 10.2 K/mm3 (1.3-6.7); Neutrophils Percent Auto 85.7 % (45.5-73.1); Platelet Count Result 162 k/mm3 (150-375); Red Blood Count 2.39 M/mm3 (4.2-5.4); Red Cell Distribution Width 13.8 % (11.5-14.5)
[2021-01-11 13:02] LABS: Hemoglobin 6.5 g/dL (12.0-15.0)
[2021-01-11] MEDS: FUROSEMIDE INJ 100 MG in SODIUM CHLORIDE 0.9% IV 90 ML 5.01 MG IV CONT (14:18)
[2021-01-11] MEDS: ONDANSETRON INJ 4 MG/2 ML VIAL IV PUSH (15:54)
[2021-01-11] MEDS: TUBING, BLOOD PLUM PUMP TUBING 1 EACH XX ×2 (15:55→21:32)
[2021-01-11] MEDS: SODIUM CHLORIDE 0.9% IV 250 ML 30 ML IV CONT (15:55)
[2021-01-11] MEDS: ACETAMINOPHEN 325 MG TABLET 650 MG PO (16:10)
[2021-01-11] MEDS: diphenhydrAMINE HCl INJ 50 MG/ML VIAL 25 MG IV PUSH (16:11)
[2021-01-11 18:17] LABS: Glucose Point of Care 98 mg/dl (65-105)
[2021-01-11 23:25] LABS: Glucose Point of Care 115 mg/dl (65-105)
[2021-01-12] VITALS (29 sets, daily range): BP systolic 116–147; BP diastolic 46–89; PULSE 60–91; RESP 20–31; TEMP 36.1–37.1; O2SAT 90–100
[2021-01-12] MEDS: ALBUMIN HUMAN 25% 25 GM/100 ML 200 ML IVPB ×2 (00:26→06:30)
[2021-01-12 01:56] LABS: Basophils Absolute Auto 0.1 K/mm3 (0.0-0.1); Basophils Percent Auto 0.4 % (0.2-1.2); Eosinophils Absolute Auto 0.2 K/mm3 (0-0.3); Eosinophils Percent Auto 1.3 % (0-4.4); Hematocrit 26.4 % (37.0-47.0); Hemoglobin 8.3 g/dL (12.0-15.0); Immature Granulocyte Absolute 0.11 K/mm3 (0.00-0.031); Lymphocytes Absolute Auto 1.11 K/mm3 (0.9-3.2); Lymphocytes Percent Auto 9.9 % (18.3-44.2); Mean Corpuscular HGB Conc 31.4 g/dl (32-36); Mean Corpuscular Hemoglobin 28.3 pg (26-34); Mean Corpuscular Volume 90.1 fl (80-100); Mean Platelet Volume 9.1 fl (7.4-10.4); Monocytes Absolute Auto 0.7 K/mm3 (0.1-0.6); Monocytes Percent Auto 6.4 % (2.6-8.5); Platelet Count Result 136 k/mm3 (150-375); Red Blood Count 2.93 M/mm3 (4.2-5.4); Red Cell Distribution Width 14.2 % (11.5-14.5); White Blood Count 11.2 K/mm3 (4.5-10.0)
[2021-01-12] MEDS: IPRATROPIUM BR 0.02% INH SOLN 0.5 MG/2.5 ML VIAL INHALATION ×4 (02:43→20:46)
[2021-01-12] MEDS: ALBUTEROL SULFATE NEB 2.5 MG/0.5 ML INH INHALATION ×4 (02:43→20:46)
[2021-01-12 05:45] LABS: Basophils Percent Auto 0.4 % (0.2-1.2); Eosinophils Absolute Auto 0.2 K/mm3 (0-0.3); Eosinophils Percent Auto 1.5 % (0-4.4); Hematocrit 26.3 % (37.0-47.0); Hemoglobin 8.3 g/dL (12.0-15.0); Immature Granulocyte Absolute 0.09 K/mm3 (0.00-0.031); Immature Granulocyte Percent A 0.9 % (0-0.5); Lymphocytes Absolute Auto 1.17 K/mm3 (0.9-3.2); Lymphocytes Percent Auto 11.7 % (18.3-44.2); Mean Corpuscular HGB Conc 31.6 g/dl (32-36); Mean Corpuscular Hemoglobin 28.6 pg (26-34); Mean Corpuscular Volume 90.7 fl (80-100); Mean Platelet Volume 9.2 fl (7.4-10.4); Monocytes Absolute Auto 0.7 K/mm3 (0.1-0.6); Monocytes Percent Auto 6.6 % (2.6-8.5); Neutrophils Absolute Auto 7.9 K/mm3 (1.3-6.7); Neutrophils Percent Auto 78.9 % (45.5-73.1); Platelet Count Result 128 k/mm3 (150-375); Red Cell Distribution Width 14.1 % (11.5-14.5)
[2021-01-12 05:56] LABS: Alanine Aminotransferase 24 U/L (4-35); Albumin Level 4.9 g/dL (3.5-5.1); Alkaline Phosphatase 39 U/L (38-126); Anion Gap 11 mmol/L (8-16); Aspartate Amino Transferase 24 U/L (14-36); Blood Urea Nitrogen 22 mg/dL (7-17); Calcium 8.7 mg/dL (8.4-10.2); Carbon Dioxide 30 mmol/L (22-30); Chloride 101 mmol/L (98-107); Estimated CRCL calculation 49 ml/min; Estimated Glomerular Filt Rate 49; Glucose 104 mg/dL (65-110); Magnesium 1.9 mg/dL (1.6-2.3); Potassium 3.2 mmol/L (3.4-5.0); Sodium 142 mmol/L (137-145)
[2021-01-12] MEDS: CENTRAL LINE FLUSH 10 ML IV PUSH ×3 (05:57→22:16)
[2021-01-12] MEDS: FUROSEMIDE INJ 100 MG in SODIUM CHLORIDE 0.9% IV 90 ML 5.01 MG IV CONT (06:05)
[2021-01-12] MEDS: LEVOTHYROXINE SODIUM 125 MCG TABLET PO (06:07)
--- NOTE | 2021-01-12 08:36 | PM.IMPN ---
Progress Note: A&P Additional Plan START OF DOCTOR JOAQUÍN?S PROGRESS NOTE Subjective: The patient in case her respiratory status has improved compared by encounter with her on January 11, 2021. She complained of cough which is nonproductive. She denies fever, rigors, nausea, vomiting, wheeze, abdominal pain, chest pain. I have explained to the patient her current medical condition plan of care and answered all her questions Objective: General: -Alert -No acute distress -No dyspnea -No tachypnea -obese Heart: -Regular rate -Regular rhythm -No murmurs -No gallops -No rubs Lungs: -no wheeze -no rhonchi -bilateral rales Abdomen: -Normal bowel sounds in all four quadrants -No rebound -No guarding -No tenderness Extremities: -2/4 pulse in all four extremities -No clubbing -No cyanosis -No edema Additional Details / Additional Findings / Exceptions / Miscellaneous: Pertinent Laboratory Results / Pertinent Radiology Results / Pertinent Diagnostic Results / Pertinent Vital Signs: Blood pressure 147/65, pulse 74, hemoglobin 8.3, platelet count 128 1000, potassium 3.2 Assessment / Plan: Pneumonia. A Zithromax 500 mg IV daily plus Rocephin 1 g IV daily plus Primaxin 500 mg IV q.6 hours which was primarily started for urinary tract infection plus DuoNeb q.6 hours Pulmonary edema. IV Lasix drip 5 milligrams/hour plus K-Dur 40 mEq p.o. daily Hyperkalemia. Monitor potassium levels intermittently. K-Dur 40 mEq p.o. daily Urinary tract infection. Urine culture positive for E coli. Primaxin 500 mg IV q.6 hours Chronic respiratory failure of uncertain etiology for which patient uses oxygen at home. I will attempted to determine her home oxygen flow rate Obesity hypoventilation syndrome Obesity. Patient counseled regarding lifestyle modification Hypertension. IV Lasix drip at 5 milligrams/hour plus K-Dur 40 mEq p.o. daily Hyperlipidemia. Zocor 20 mg p.o. q.h.s. Hypothyroidism. Synthroid 125 mg p.o. daily Anxiety Depression. Zoloft 50 mg p.o. daily Acute anemia/Anemia of chronic disease. Will monitor hemoglobin levels intermittently. Patient received 2 units packed red blood cells on January 11, 2021 Monitor CBC q.8 hours Hyponatremia. Monitor sodium levels intermittently Hypomagnesemia, resolved Acute renal insufficiency. Will monitor creatinine intermittently. Bilateral renal ultrasound unremarkable. Albumin 50 g IV q.8 hours Transaminitis. Will monitor LFTs periodically with CMP. If no improvement/resolution will check right upper quadrant ultrasound Elevated troponin, flat. This may be false elevation secondary to acute renal insufficiency. Aspirin 81 mg p.o. daily being held secondary to anemia. Zocor 20 mg p.o. q.h.s. plus metoprolol 12.5 mg p.o. b.i.d. GI prophylaxis. Pepcid 20 mg p.o. b.i.d. DVT prophylaxis. Bilateral SCD Disposition: Anticipate discharge in 24-48 hours END OF DOCTOR JOAQUÍN?S PROGRESS NOTE Subjective Date/time seen: 01/12/21 08:36 Objective Data Vital Signs Vital Signs: Vital Signs - 24 hr 01/11/21 08:39 01/11/21 08:53 01/11/21 10:00 Temperature Pulse Rate 76 75 78 Respiratory Rate 18 20 Blood Pressure Pulse Oximetry 95 01/11/21 12:00 01/11/21 12:35 01/11/21 12:36 Temperature 96.3 F L Pulse Rate 86 82 82 Respiratory Rate 30 H 24 H Blood Pressure 131/58 L Pulse Oximetry 98 98 01/11/21 12:45 01/11/21 14:00 01/11/21 14:18 Temperature Pulse Rate 82 90 82 Respiratory Rate 20 Blood Pressure 131/58 L Pulse Oximetry 01/11/21 16:00 01/11/21 16:19 01/11/21 16:35 Temperature 97.0 F L 97.0 F L 97.4 F L Pulse Rate 87 88 91 Respiratory Rate 20 20 18 Blood Pressure 125/49 L 125/49 L 115/41 L Pulse Oximetry 94 94 94 01/11/21 18:00 01/11/21 18:40 01/11/21 18:50 Temperature 96.7 F L 98.2 F Pulse Rate 84 84 74 Respiratory Rate 18 22 H Blood Pressure 109/45 L 105/39 L Pu
[2021-01-12] MEDS: FAMOTIDINE 20 MG TABLET PO ×2 (10:33→17:52)
[2021-01-12] MEDS: POTASSIUM CHLORIDE 20 MEQ TABLET.ER 40 MEQ PO (10:34)
[2021-01-12] MEDS: METOPROLOL TARTRATE 12.5 MG TABLET PO ×2 (10:35→20:42)
[2021-01-12] MEDS: SIMVASTATIN 20 MG TABLET PO (10:35)
[2021-01-12] MEDS: SERTRALINE HCL 50 MG TABLET PO (10:35)
[2021-01-12 14:43] LABS: Glucose Point of Care 127 mg/dl (65-105)
[2021-01-12 14:50] LABS: Basophils Percent Auto 0.3 % (0.2-1.2); Eosinophils Absolute Auto 0.2 K/mm3 (0-0.3); Eosinophils Percent Auto 1.4 % (0-4.4); Hematocrit 27.4 % (37.0-47.0); Hemoglobin 8.8 g/dL (12.0-15.0); Immature Granulocyte Absolute 0.17 K/mm3 (0.00-0.031); Immature Granulocyte Percent A 1.5 % (0-0.5); Lymphocytes Absolute Auto 1.26 K/mm3 (0.9-3.2); Lymphocytes Percent Auto 10.8 % (18.3-44.2); Mean Corpuscular HGB Conc 32.1 g/dl (32-36); Mean Corpuscular Hemoglobin 28.2 pg (26-34); Mean Corpuscular Volume 87.8 fl (80-100); Mean Platelet Volume 9.3 fl (7.4-10.4); Monocytes Percent Auto 8.3 % (2.6-8.5); Neutrophils Absolute Auto 9.1 K/mm3 (1.3-6.7); Neutrophils Percent Auto 77.7 % (45.5-73.1); Platelet Count Result 131 k/mm3 (150-375); Red Blood Count 3.12 M/mm3 (4.2-5.4); White Blood Count 11.7 K/mm3 (4.5-10.0)
[2021-01-12 17:56] LABS: Glucose Point of Care 114 mg/dl (65-105)
[2021-01-12] MEDS: SIMETHICONE 80 MG TAB.CHEW PO (22:16)
[2021-01-12 22:19] LABS: Basophils Absolute Auto 0.1 K/mm3 (0.0-0.1); Basophils Percent Auto 0.5 % (0.2-1.2); Eosinophils Absolute Auto 0.2 K/mm3 (0-0.3); Eosinophils Percent Auto 1.7 % (0-4.4); Hematocrit 29.4 % (37.0-47.0); Hemoglobin 9.5 g/dL (12.0-15.0); Immature Granulocyte Absolute 0.26 K/mm3 (0.00-0.031); Immature Granulocyte Percent A 2.1 % (0-0.5); Lymphocytes Absolute Auto 1.47 K/mm3 (0.9-3.2); Lymphocytes Percent Auto 11.6 % (18.3-44.2); Mean Corpuscular HGB Conc 32.3 g/dl (32-36); Mean Corpuscular Hemoglobin 28.5 pg (26-34); Mean Corpuscular Volume 88.3 fl (80-100); Mean Platelet Volume 9.1 fl (7.4-10.4); Monocytes Absolute Auto 1.1 K/mm3 (0.1-0.6); Monocytes Percent Auto 8.5 % (2.6-8.5); Neutrophils Absolute Auto 9.6 K/mm3 (1.3-6.7); Neutrophils Percent Auto 75.6 % (45.5-73.1); Platelet Count Result 124 k/mm3 (150-375); Red Blood Count 3.33 M/mm3 (4.2-5.4); Red Cell Distribution Width 13.7 % (11.5-14.5); White Blood Count 12.6 K/mm3 (4.5-10.0)
[2021-01-13] VITALS (28 sets, daily range): BP systolic 104–122; BP diastolic 48–57; PULSE 68–91; RESP 12–26; TEMP 36.2–36.8; O2SAT 92–100
[2021-01-13 00:58] LABS: Glucose Point of Care 109 mg/dl (65-105)
[2021-01-13] MEDS: FUROSEMIDE INJ 100 MG in SODIUM CHLORIDE 0.9% IV 90 ML 5.01 MG IV CONT ×2 (01:51→20:55)
[2021-01-13] MEDS: ALBUTEROL SULFATE NEB 2.5 MG/0.5 ML INH INHALATION ×4 (02:13→20:58)
[2021-01-13] MEDS: IPRATROPIUM BR 0.02% INH SOLN 0.5 MG/2.5 ML VIAL INHALATION ×4 (02:13→20:58)
[2021-01-13 05:24] LABS: Hematocrit 29.6 % (37.0-47.0); Hemoglobin 9.5 g/dL (12.0-15.0)
[2021-01-13 05:47] LABS: Alanine Aminotransferase 21 U/L (4-35); Albumin Level 4.7 g/dL (3.5-5.1); Alkaline Phosphatase 37 U/L (38-126); Anion Gap 9 mmol/L (8-16); Aspartate Amino Transferase 30 U/L (14-36); Bilirubin,Total 1.1 mg/dL (0.2-1.3); Blood Urea Nitrogen 25 mg/dL (7-17); Carbon Dioxide 37 mmol/L (22-30); Chloride 93 mmol/L (98-107); Estimated CRCL calculation 49 ml/min; Estimated Glomerular Filt Rate 49; Glucose 108 mg/dL (65-110); Magnesium 1.4 mg/dL (1.6-2.3); Phosphorus 2.2 mg/dL (2.5-4.5); Sodium 139 mmol/L (137-145)
[2021-01-13] MEDS: CENTRAL LINE FLUSH 10 ML IV PUSH ×3 (05:55→20:54)
[2021-01-13] MEDS: LEVOTHYROXINE SODIUM 125 MCG TABLET PO (06:53)
[2021-01-13] MEDS: POTASSIUM CHLORIDE 20 MEQ TABLET.ER 40 MEQ PO (08:58)
[2021-01-13] MEDS: FAMOTIDINE 20 MG TABLET PO ×2 (08:58→17:31)
[2021-01-13] MEDS: SIMVASTATIN 20 MG TABLET PO (08:59)
[2021-01-13] MEDS: METOPROLOL TARTRATE 12.5 MG TABLET PO ×2 (08:59→20:54)
[2021-01-13] MEDS: SERTRALINE HCL 50 MG TABLET PO (08:59)
[2021-01-13 12:40] LABS: Glucose Point of Care 149 mg/dl (65-105)
[2021-01-13 16:17] LABS: Glucose Point of Care 110 mg/dl (65-105)
--- NOTE | 2021-01-13 16:26 | PM.IMPN ---
Progress Note: A&P Assessment and Plan (1) Oxygen dependent: Code(s): Z99.81 - Dependence on supplemental oxygen Status: Acute (2) Anxiety and depression: Code(s): F41.9 - Anxiety disorder, unspecified; F32.A - Depression, unspecified Status: Chronic (3) Hypothyroidism: Code(s): E03.9 - Hypothyroidism, unspecified Status: Chronic (4) Hypertension: Code(s): I10 - Essential (primary) hypertension Status: Chronic Assessment and Plan: Chronic and stable (5) Acute kidney injury: Code(s): N17.9 - Acute kidney failure, unspecified Status: Acute Assessment and Plan: Creat is 1.5 cont to monitor pt is on lasix drip (6) Suspected COVID-19 virus infection: Code(s): Z20.822 - Contact with and (suspected) exposure to COVID-19 Status: Acute Assessment and Plan: Is ruled out (7) Sepsis: Code(s): A41.9 - Sepsis, unspecified organism Status: Acute Assessment and Plan: Treated for community acquired pneumonia (8) Community acquired pneumonia: Qualifiers: Laterality: unspecified laterality Qualified Code(s): J18.9 - Pneumonia, unspecified organism Code(s): J18.9 - Pneumonia, unspecified organism Status: Acute (9) Congestive heart failure: Qualifiers: Heart failure chronicity: unspecified Heart failure type: unspecified Qualified Code(s): I50.9 - Heart failure, unspecified Code(s): I50.9 - Heart failure, unspecified Status: Acute Assessment and Plan: Pt is on a lasixdrip consult cardiology (10) Acute respiratory failure: Qualifiers: Respiratory failure complication: hypoxia Qualified Code(s): J96.01 - Acute respiratory failure with hypoxia Code(s): J96.00 - Acute respiratory failure, unspecified whether with hypoxia or hypercapnia Status: Acute Assessment and Plan: BIpap prn and oxygen slow improvement order CXR Subjective Date/time seen: 01/13/21 16:26 Review of Systems Review of Systems: All systems reviewed & are unremarkable except as noted in HPI and below Exam Const: General: other (tired on oxygen ) Nutritional Appearance: overweight Orientation/consciousness: oriented to person HENMT: Head: normal to inspection Resp: Effort & Inspection: no respiratory distress Auscultation: other (BL crackles ) Cardio: Rate: regular rate Rhythm: regular rhythm GI: Inspection: normal to inspection GI Palp: No abdominal tenderness, No Guarding due to palpation present (GI) and No Hepatomegaly present Auscultation: normal bowel sounds Neuro: General: oriented to person Objective Data Vital Signs Vital Signs: Vital Signs - 24 hr 01/12/21 18:00 01/12/21 20:00 01/12/21 20:42 Temperature 36.6 C Pulse Rate 91 87 74 Respiratory Rate 20 Blood Pressure 137/89 Pulse Oximetry 97 01/12/21 20:47 01/12/21 21:00 01/12/21 22:00 Temperature Pulse Rate 79 78 74 Respiratory Rate 20 20 Blood Pressure Pulse Oximetry 95 01/12/21 23:42 01/13/21 00:00 01/13/21 01:05 Temperature 36.7 C Pulse Rate 70 70 77 Respiratory Rate 20 26 H Blood Pressure 136/50 L Pulse Oximetry 100 98 98 01/13/21 02:00 01/13/21 02:15 01/13/21 02:25 Temperature Pulse Rate 68 77 79 Respiratory Rate 20 20 Blood Pressure Pulse Oximetry 01/13/21 04:00 01/13/21 04:21 01/13/21 06:00 Temperature 36.8 C Pulse Rate 70 72 71 Respiratory Rate 12 22 H Blood Pressure 112/48 L Pulse Oximetry 97 97 01/13/21 08:00 01/13/21 08:37 01/13/21 09:55 Temperature 36.2 C L Pulse Rate 73 76 77 Respiratory Rate 14 20 Blood Pressure 114/51 L Pulse Oximetry 92 100 98 01/13/21 10:00 01/13/21 10:07 01/13/21 12:00 Temperature Pulse Rate 71 80 78 Respiratory Rate 20 Blood Pressure Pulse Oximetry 98 92 01/13/21 12:55 01/13/21 14:00 01/13/21 14:30 Temperature 36.6 C Pulse Ra
[2021-01-14] VITALS (29 sets, daily range): BP systolic 103–127; BP diastolic 45–57; PULSE 77–97; RESP 12–20; TEMP 36.6–36.7; O2SAT 92–99
[2021-01-14 01:55] LABS: Glucose Point of Care 138 mg/dl (65-105)
[2021-01-14] MEDS: ALBUTEROL SULFATE NEB 2.5 MG/0.5 ML INH INHALATION ×4 (02:49→20:12)
[2021-01-14] MEDS: IPRATROPIUM BR 0.02% INH SOLN 0.5 MG/2.5 ML VIAL INHALATION ×4 (02:52→20:12)
[2021-01-14] MEDS: CENTRAL LINE FLUSH 10 ML IV PUSH ×3 (05:53→20:23)
[2021-01-14] MEDS: LEVOTHYROXINE SODIUM 125 MCG TABLET PO (05:53)
[2021-01-14 06:44] LABS: Hematocrit 29.3 % (37.0-47.0); Hemoglobin 9.9 g/dL (12.0-15.0); Mean Corpuscular HGB Conc 33.8 g/dl (32-36); Mean Corpuscular Hemoglobin 30.8 pg (26-34); Mean Corpuscular Volume 91.3 fl (80-100); Mean Platelet Volume 9.5 fl (7.4-10.4); Platelet Count Result 206 k/mm3 (150-375); Red Blood Count 3.21 M/mm3 (4.2-5.4); White Blood Count 10.4 K/mm3 (4.5-10.0)
[2021-01-14 07:06] LABS: Alanine Aminotransferase 16 U/L (4-35); Albumin Level 4.5 g/dL (3.5-5.1); Alkaline Phosphatase 51 U/L (38-126); Anion Gap 11 mmol/L (8-16); Aspartate Amino Transferase 19 U/L (14-36); Bilirubin,Total 0.8 mg/dL (0.2-1.3); Blood Urea Nitrogen 33 mg/dL (7-17); Calcium 9.3 mg/dL (8.4-10.2); Carbon Dioxide 38 mmol/L (22-30); Chloride 90 mmol/L (98-107); Estimated CRCL calculation 46 ml/min; Estimated Glomerular Filt Rate 44; Glucose 118 mg/dL (65-110); Magnesium 1.5 mg/dL (1.6-2.3); Phosphorus 2.9 mg/dL (2.5-4.5); Potassium 3.4 mmol/L (3.4-5.0); Sodium 139 mmol/L (137-145)
[2021-01-14] MEDS: POTASSIUM CHLORIDE 20 MEQ TABLET.ER 40 MEQ PO (09:35)
[2021-01-14] MEDS: SERTRALINE HCL 50 MG TABLET PO (09:35)
[2021-01-14] MEDS: METOPROLOL TARTRATE 12.5 MG TABLET PO ×2 (09:36→20:23)
[2021-01-14] MEDS: SIMVASTATIN 20 MG TABLET PO (09:36)
[2021-01-14] MEDS: FAMOTIDINE 20 MG TABLET PO ×2 (09:36→16:25)
--- NOTE | 2021-01-14 09:38 | PM.CNCAR ---
Assessment and Plan Assessment and plan (1) Acute respiratory failure: Qualifiers: Respiratory failure complication: hypoxia Qualified Code(s): J96.01 - Acute respiratory failure with hypoxia Code(s): J96.00 - Acute respiratory failure, unspecified whether with hypoxia or hypercapnia Status: Acute Assessment and Plan: Secondary to presumed community-acquired pneumonia currently on Imipenem/Cilastatin and Azithromycin. Diffuse infiltrates persist on CXR similar to presentation, minimal O2 support at present. She is not currently in significant HF or volume overloaded. I cannot account her volume status served clinical stability at the time of initiation of Lasix drip as there is no documentation of significant change, although she is relatively stable and not significantly volume overloaded at this time. As such, recommend discontinuation Lasix drip, may reinitiate her home diuretic regimen with bumetanide 0.5 mg twice daily. Monitor renal function electrolytes closely as her BUN and creatinine have begun to slightly increase after baseline improvement from admission. Continue to monitor volume status closely. EF was greater than 70% without significant valvular heart disease to contribute to her clinical picture at this time. When appropriate, apnea link overnight would be advised to assess for significant KATELYN. Spent 62 minutes in the care of this patient at bedside interview with vehicle check in clerk, examination, chart review, and medical decision making. (2) Community acquired pneumonia: Qualifiers: Laterality: unspecified laterality Qualified Code(s): J18.9 - Pneumonia, unspecified organism Code(s): J18.9 - Pneumonia, unspecified organism Status: Acute Assessment and Plan: Per primary service. She is no longer febrile with resolution of her hypotension, renal failure, respiratory failure, lactic acidosis and leukocytosis. Clearly, her presentation is not consistent with decompensated heart failure. I see no benefit for Lasix infusion at this time so this will be discontinued. Patient remains on IV antibiotics. If she does not demonstrate further significant clinical improvement consider Pulmonary and Infectious Disease consultation. Defer to primary service in this regard. Continue bronchodilator therapy. Another consideration is PE given presentation and critical illness (3) Sepsis: Code(s): A41.9 - Sepsis, unspecified organism Status: Acute Assessment and Plan: Resolving with antibiotic therapy. Lactic acidosis had resolved as well as leukocytosis. (4) Acute kidney injury: Code(s): N17.9 - Acute kidney failure, unspecified Status: Acute Assessment and Plan: Improved with IV fluid resuscitation. Continue to monitor closely. (5) Elevated troponin: Code(s): R77.8 - Other specified abnormalities of plasma proteins Status: Acute Assessment and Plan: Type 2 infarction not secondary to acute coronary syndrome and/or plaque rupture in the setting of hypotension, acute hypoxic respiratory failure, acute renal failure, anemia and sepsis. No further invasive workup anticipated at this time. 2D echocardiogram preserved LV function without wall motion abnormalities EF greater than 70%. (6) Anemia: Code(s): D64.9 - Anemia, unspecified Status: Acute Assessment and Plan: Persistent significant anemia without evidence of acute blood loss. Patient did receive 2 units packed red blood cells after presentation. Follow H&H. History of Present Illness History of Present Illness Consult date/time: Date of service: 01/14/21 09:38 Cardiology consultation at the request of Dr. Oviedo for opinion regarding CHF and Lasix infusion. Requesting physician: Charissa Oviedo MD Consult reason: congestive heart failure and Other (lasix infusion) Reason For Visit: Pneumonia/dehydration/renal failure/sepsis/DNR Narrative: A
[2021-01-14 12:17] LABS: Glucose Point of Care 126 mg/dl (65-105)
--- NOTE | 2021-01-14 13:48 | PM.IMPN ---
Progress Note: A&P Assessment and Plan (1) Oxygen dependent: Code(s): Z99.81 - Dependence on supplemental oxygen Status: Acute Assessment and Plan: SEE BELOW (2) Anxiety and depression: Code(s): F41.9 - Anxiety disorder, unspecified; F32.A - Depression, unspecified Status: Chronic (3) Hypothyroidism: Code(s): E03.9 - Hypothyroidism, unspecified Status: Chronic (4) Hypertension: Code(s): I10 - Essential (primary) hypertension Status: Chronic Assessment and Plan: Chronic and stable (5) Acute kidney injury: Code(s): N17.9 - Acute kidney failure, unspecified Status: Acute Assessment and Plan: Creat is 1.5 cont to monitor pt is on lasix drip (6) Sepsis: Code(s): A41.9 - Sepsis, unspecified organism Status: Acute Assessment and Plan: Treated for community acquired pneumonia (7) Community acquired pneumonia: Qualifiers: Laterality: unspecified laterality Qualified Code(s): J18.9 - Pneumonia, unspecified organism Code(s): J18.9 - Pneumonia, unspecified organism Status: Acute (8) Congestive heart failure: Qualifiers: Heart failure chronicity: unspecified Heart failure type: unspecified Qualified Code(s): I50.9 - Heart failure, unspecified Code(s): I50.9 - Heart failure, unspecified Status: Acute Assessment and Plan: Pt is on a lasix drip consult cardiology (9) Acute respiratory failure: Qualifiers: Respiratory failure complication: hypoxia Qualified Code(s): J96.01 - Acute respiratory failure with hypoxia Code(s): J96.00 - Acute respiratory failure, unspecified whether with hypoxia or hypercapnia Status: Acute Assessment and Plan: BIpap prn and oxygen slow improvement order CXR Additional Plan Assessment / Plan: Pneumonia. A Zithromax 500 mg IV daily Pulmonary edema. pt is on a iv lasix drip cardiology consulted ordercxr for yany monitor bmp closely Hyperkalemia. Monitor potassium levels intermittently. K-Dur 40 mEq p.o. daily Urinary tract infection. Urine culture positive for E coli. Primaxin 500 mg IV q.6 hours Chronic respiratory failure of uncertain etiology for which patient uses oxygen at home. Obesity hypoventilation syndrome Obesity. Patient counseled regarding lifestyle modification Hypertension. IV Lasix drip at 5 milligrams/hour plus K-Dur 40 mEq p.o. daily Hyperlipidemia. Zocor 20 mg p.o. q.h.s. Hypothyroidism. Synthroid 125 mg p.o. daily Anxiety chronic and stable Depression. Zoloft 50 mg p.o. daily Acute anemia/Anemia of chronic disease. Will monitor hemoglobin levels intermittently. Patient received 2 units packed red blood cells on January 11, 2021 Monitor CBC q.8 hours Hyponatremia. Monitor sodium levels intermittently Hypomagnesemia, resolved Acute renal insufficiency. Will monitor creatinine intermittently. Transaminitis. Will monitor LFTs periodically with CMP. Elevated troponin, flat. This may be false elevation secondary to acute renal insufficiency. Aspirin 81 mg p.o. daily being held secondary to anemia. Zocor 20 mg p.o. q.h.s. plus metoprolol 12.5 mg p.o. b.i.d. GI prophylaxis. Pepcid 20 mg p.o. b.i.d. DVT prophylaxis. Bilateral SCD Subjective Date/time seen: 01/14/21 13:48 Interval history: From admission notes: 75-year-old female patient who is Greek-speaking. The daughter it was at the bedside in the emergency room and was giving the information. When I assessed the patient was on a BiPAP. According to the daughter the patient has not been eating very well for the last 2 days. The patient had increased productive cough and some generalized weakness as well as lethargy over the last 48 hours. the patient has been fully vaccinated for COVID-19 with the [employer] last year. The patient does have p.r.n. oxygen at. She has a history of
[2021-01-14] MEDS: ACETAMINOPHEN 325 MG TABLET 650 MG PO (14:18)
[2021-01-14] MEDS: BENZONATATE 100 MG CAPSULE 200 MG PO (16:25)
[2021-01-14 16:44] LABS: Glucose Point of Care 103 mg/dl (65-105)
[2021-01-15] VITALS (28 sets, daily range): BP systolic 111–140; BP diastolic 54–60; PULSE 70–94; RESP 16–23; TEMP 35.9–36.8; O2SAT 92–97
[2021-01-15 00:20] LABS: Glucose Point of Care 127 mg/dl (65-105)
[2021-01-15] MEDS: ALBUTEROL SULFATE NEB 2.5 MG/0.5 ML INH INHALATION ×4 (02:25→21:01)
[2021-01-15] MEDS: IPRATROPIUM BR 0.02% INH SOLN 0.5 MG/2.5 ML VIAL INHALATION ×4 (02:25→21:01)
[2021-01-15] MEDS: LEVOTHYROXINE SODIUM 125 MCG TABLET PO (05:39)
[2021-01-15] MEDS: CENTRAL LINE FLUSH 10 ML IV PUSH ×3 (05:39→21:32)
[2021-01-15 06:02] LABS: Hematocrit 30.5 % (37.0-47.0); Hemoglobin 9.9 g/dL (12.0-15.0); Mean Corpuscular HGB Conc 32.5 g/dl (32-36); Mean Corpuscular Hemoglobin 28.4 pg (26-34); Mean Corpuscular Volume 87.6 fl (80-100); Mean Platelet Volume 9.4 fl (7.4-10.4); Platelet Count Result 225 k/mm3 (150-375); Red Blood Count 3.48 M/mm3 (4.2-5.4); Red Cell Distribution Width 13.4 % (11.5-14.5); White Blood Count 9.7 K/mm3 (4.5-10.0)
[2021-01-15 06:15] LABS: Blood Urea Nitrogen 38 mg/dL (7-17); Calcium 9.6 mg/dL (8.4-10.2); Carbon Dioxide > 40 mmol/L (22-30); Chloride 90 mmol/L (98-107); Estimated CRCL calculation 42 ml/min; Estimated Glomerular Filt Rate 40; Glucose 127 mg/dL (65-110); Potassium 3.5 mmol/L (3.4-5.0); Sodium 137 mmol/L (137-145)
[2021-01-15] MEDS: SERTRALINE HCL 50 MG TABLET PO (08:49)
[2021-01-15] MEDS: SIMVASTATIN 20 MG TABLET PO (08:49)
[2021-01-15] MEDS: FAMOTIDINE 20 MG TABLET PO ×2 (08:49→17:21)
[2021-01-15] MEDS: BENZONATATE 100 MG CAPSULE 200 MG PO ×2 (08:49→14:42)
[2021-01-15] MEDS: METOPROLOL TARTRATE 12.5 MG TABLET PO ×2 (08:49→21:31)
[2021-01-15] MEDS: BUMETANIDE 0.5 MG TABLET PO (08:49)
[2021-01-15] MEDS: POTASSIUM CHLORIDE 20 MEQ TABLET.ER 40 MEQ PO (08:50)
--- NOTE | 2021-01-15 10:44 | PM.PNCARD ---
Progress Note: A&P Assessment and Plan (1) Acute respiratory failure: Qualifiers: Respiratory failure complication: hypoxia Qualified Code(s): J96.01 - Acute respiratory failure with hypoxia <SIMBA Harkins - Last Filed: 01/15/21 12:02> Code(s): J96.00 - Acute respiratory failure, unspecified whether with hypoxia or hypercapnia <SIMBA Harkins - Last Filed: 01/15/21 12:02> Status: Acute <SIMBA Harkins - Last Filed: 01/15/21 12:02> Assessment and Plan: Secondary to presumed community-acquired pneumonia currently on Imipenem/Cilastatin and Azithromycin. Comfortable on minimal O2 support currently. Persistent dry cough. Management per primary service. <SIMBA Harkins - Last Filed: 01/15/21 12:02> (2) Community acquired pneumonia: Qualifiers: Laterality: unspecified laterality Qualified Code(s): J18.9 - Pneumonia, unspecified organism <SIMBA Harkins - Last Filed: 01/15/21 12:02> Code(s): J18.9 - Pneumonia, unspecified organism <SIMBA Harkins - Last Filed: 01/15/21 12:02> Status: Acute <SIMBA Harkins - Last Filed: 01/15/21 12:02> Assessment and Plan: Per primary service. She is no longer febrile with resolution of her hypotension, renal failure, respiratory failure, lactic acidosis and leukocytosis. Clearly, her presentation is not consistent with decompensated heart failure. Lasix has been discontinued. <SIMBA Harkins - Last Filed: 01/15/21 12:02> (3) Sepsis: Code(s): A41.9 - Sepsis, unspecified organism <SIMBA Harkins - Last Filed: 01/15/21 12:02> Status: Acute <SIMBA Harkins - Last Filed: 01/15/21 12:02> Assessment and Plan: Resolving with antibiotic therapy. Lactic acidosis had resolved as well as leukocytosis. <SIMBA Harkins - Last Filed: 01/15/21 12:02> (4) Acute kidney injury: Code(s): N17.9 - Acute kidney failure, unspecified <SIMBA Harkins - Last Filed: 01/15/21 12:02> Status: Acute <SIMBA Harkins - Last Filed: 01/15/21 12:02> Assessment and Plan: Improved with IV fluid resuscitation. Continue to monitor closely. <SIMBA Harkins - Last Filed: 01/15/21 12:02> (5) Elevated troponin: Code(s): R77.8 - Other specified abnormalities of plasma proteins <SIMBA Harkins - Last Filed: 01/15/21 12:02> Status: Acute <SIMBA Harkins - Last Filed: 01/15/21 12:02> Assessment and Plan: Type 2 infarction not secondary to acute coronary syndrome and/or plaque rupture in the setting of hypotension, acute hypoxic respiratory failure, acute renal failure, anemia and sepsis. No further invasive workup anticipated at this time. 2D echocardiogram preserved LV function without wall motion abnormalities EF greater than 70%. <SIMBA Harkins - Last Filed: 01/15/21 12:02> (6) Anemia: Code(s): D64.9 - Anemia, unspecified <SIMBA Harkins - Last Filed: 01/15/21 12:02> Status: Acute <SIMBA Harkins - Last Filed: 01/15/21 12:02> Assessment and Plan: Persistent significant anemia without evidence of acute blood loss. Patient did receive 2 units packed red blood cells after presentation. Follow H&H. <SIMBA Harkins - Last Filed: 01/15/21 12:02> Additional Plan <SIMBA Harkins - Last Filed: 01/15/21 12:02> Attending Addendum: I agree with the above documentation and plan of care as outlined. Plan of Care: Continue oral Lasix, may transfer out of IMU. Will see patient on an as-needed basis. Please do not hesitate to contact us with any additional questions or concerns. <Isiah Kim MD - Last Filed: 01/15/21 14:42> Subjective Date/time seen: 01/15/21 10:44 Cardiology follow up Date of service 01/15/2021: Spoke to hien
[2021-01-15] MEDS: ACETAMINOPHEN 325 MG TABLET 650 MG PO (11:57)
[2021-01-15 12:32] LABS: Glucose Point of Care 160 mg/dl (65-105)
[2021-01-15 17:01] LABS: Glucose Point of Care 110 mg/dl (65-105)
--- NOTE | 2021-01-15 19:55 | PC.NURSE ---
Pt arrived from IMU, pt alert and oriented introduced to staff and room.
--- NOTE | 2021-01-15 20:14 | PC.NURSE ---
patient transferred to [address] [place] [id number] at 1951. report given to robert molina rn.
--- NOTE | 2021-01-15 22:19 | PM.IMPN ---
Progress Note: A&P Assessment and Plan (1) Community acquired pneumonia: Qualifiers: Laterality: unspecified laterality Qualified Code(s): J18.9 - Pneumonia, unspecified organism Code(s): J18.9 - Pneumonia, unspecified organism Status: Acute (2) Congestive heart failure: Qualifiers: Heart failure chronicity: unspecified Heart failure type: unspecified Qualified Code(s): I50.9 - Heart failure, unspecified Code(s): I50.9 - Heart failure, unspecified Status: Acute (3) Acute respiratory failure: Qualifiers: Respiratory failure complication: hypoxia Qualified Code(s): J96.01 - Acute respiratory failure with hypoxia Code(s): J96.00 - Acute respiratory failure, unspecified whether with hypoxia or hypercapnia Status: Acute (4) Sepsis: Qualifiers: Sepsis type: sepsis due to unspecified organism Sepsis acute organ dysfunction status: with acute organ dysfunction Severe sepsis acute organ dysfunction type: acute respiratory failure Acute respiratory failure type: with hypoxia Severe sepsis shock status: without septic shock Qualified Code(s): A41.9 - Sepsis, unspecified organism; R65.20 - Severe sepsis without septic shock; J96.01 - Acute respiratory failure with hypoxia Code(s): A41.9 - Sepsis, unspecified organism Status: Acute (5) Acute kidney injury: Code(s): N17.9 - Acute kidney failure, unspecified Status: Acute (6) Oxygen dependent: Code(s): Z99.81 - Dependence on supplemental oxygen Status: Acute Additional Plan The patient initially had me accord pneumonia with left greater than right lower lobe infiltrates. The patient was initially started Primaxin and azithromycin. The patient white count has improved significantly. We can likely deescalate the patient's antibiotic therapy as she received 6 doses with tomorrow being 7th dose of antibiotics. She is down to 1 L nasal cannula. She was initially being treated for CHF exacerbation with Lasix drip which was discontinued on the . She did initially have acute renal injury but her creatinine has returned to near normal. I suspect patient has some baseline chronic kidney disease. The patient is medically stable we transferred the medical floor with telemetry. Time Spent With Patient Time with patient: 25 - 35 minutes Subjective Date/time seen: 01/15/21 22:19 Interval history: She reports that she still has a poor appetite. Her breathing has improved somewhat. She still has frequent episodes of coughing. She has been afebrile. She has not had a bowel movement since admission Review of systems obtained through research project manager services. Review of Systems Review of Systems: All systems reviewed & are unremarkable except as noted in HPI and below Exam Narrative: PHYSICAL EXAM: WEIGHT 128 kg BMI 55.1 General: Morbidly obese, chronically ill-appearing no acute distress HEENT: Crowded posterior oropharynx, large neck circumference, nasal cannula in place Respiratory: Decreased breath sounds at the bases code creased work of breathing Cardiovascular: Regular rate, 2+ right radial pulse Gastrointestinal: Obese, nontender, positive bowel Skin: None jaundice, cool to touch Musculoskeletal: 1+ pitting edema bilateral lower extremities, PICC line right upper extremity Neurological: Alert oriented, no facial asymmetry Psychiatric: Appropriate mood and affect, pleasant and cooperative : [place] catheter in place Hematologic/lymphatic: No petechiae, no bruising Objective Data Vital Signs Vital Signs: Vital Signs - 24 hr 01/14/21 23:34 01/15/21 00:00 01/15/21 02:00 Temperature 97.8 F Pulse Rate 97 86 77 Respiratory Rate 20 20 Blood Pressure 112/45 L Pulse Oximetry 95 95 01/15/21 02:25 01/15/21 02:33 01/15/21 04:00 Temperature 97.8 F Pulse Rate 70 73 94 Respiratory Rate 16 18 20 Blood Pressure 128/57 L Pulse Oxim
[2021-01-15] MEDS: BISACODYL 5 MG TABLET EC PO (23:05)
[2021-01-15] MEDS: ALTEPLASE 2 MG VIAL (CATHFLO) IV PUSH ×2 (23:05)
[2021-01-16] VITALS (22 sets, daily range): BP systolic 117–123; BP diastolic 44–50; PULSE 69–82; RESP 18–23; TEMP 36.1–37.1; O2SAT 93–97; BMI 55.0
[2021-01-16] MEDS: IPRATROPIUM BR 0.02% INH SOLN 0.5 MG/2.5 ML VIAL INHALATION ×4 (01:45→20:27)
[2021-01-16] MEDS: ALBUTEROL SULFATE NEB 2.5 MG/0.5 ML INH INHALATION ×4 (01:45→20:27)
[2021-01-16] MEDS: CENTRAL LINE FLUSH 10 ML IV PUSH ×3 (04:56→20:14)
[2021-01-16] MEDS: LEVOTHYROXINE SODIUM 125 MCG TABLET PO (05:55)
[2021-01-16 07:57] LABS: Glucose Point of Care 135 mg/dl (65-105)
[2021-01-16] MEDS: SIMVASTATIN 20 MG TABLET PO (08:13)
[2021-01-16] MEDS: BUMETANIDE 0.5 MG TABLET PO (08:13)
[2021-01-16] MEDS: METOPROLOL TARTRATE 12.5 MG TABLET PO ×2 (08:13→20:14)
[2021-01-16] MEDS: FAMOTIDINE 20 MG TABLET PO ×2 (08:13→16:33)
[2021-01-16] MEDS: POTASSIUM CHLORIDE 20 MEQ TABLET.ER 40 MEQ PO (08:13)
[2021-01-16] MEDS: SERTRALINE HCL 50 MG TABLET PO (08:14)
[2021-01-16] MEDS: ONDANSETRON INJ 4 MG/2 ML VIAL IV PUSH (12:48)
[2021-01-16] MEDS: BENZONATATE 100 MG CAPSULE 200 MG PO (14:04)
--- NOTE | 2021-01-16 15:19 | PCOTNOTE ---
Attempted to see patient this pm, however patient sleeping soundly upon entering. Did not disturb patient for this reason.
--- NOTE | 2021-01-16 15:39 | PM.IMPN ---
Progress Note: A&P Assessment and Plan (1) Community acquired pneumonia: Qualifiers: Laterality: unspecified laterality Qualified Code(s): J18.9 - Pneumonia, unspecified organism Code(s): J18.9 - Pneumonia, unspecified organism Status: Acute Assessment and Plan: The patient was initially started Primaxin and azithromycin. The patient white count has improved significantly. She is currently saturating well 97% on room air. Currently on imipenem and azithromycin. (2) Congestive heart failure: Qualifiers: Heart failure chronicity: unspecified Heart failure type: unspecified Qualified Code(s): I50.9 - Heart failure, unspecified Code(s): I50.9 - Heart failure, unspecified Status: Acute Assessment and Plan: Patient was initially being treated for CHF exacerbation with Lasix drip which was discontinued on the . She did initially have experience acute renal injury but her creatinine has returned to near normal. (3) Acute respiratory failure: Qualifiers: Respiratory failure complication: hypoxia Qualified Code(s): J96.01 - Acute respiratory failure with hypoxia Code(s): J96.00 - Acute respiratory failure, unspecified whether with hypoxia or hypercapnia Status: Acute Assessment and Plan: BIpap prn and oxygen slow improvement. Repeat chest Xray on 01/16/2021: Unchanged patchy bilateral airspace opacities and increasing consolidation at the left lung base which could represent atelectasis and/or pneumonia. Repeat chest Xray. (4) Sepsis: Qualifiers: Sepsis type: sepsis due to unspecified organism Sepsis acute organ dysfunction status: with acute organ dysfunction Severe sepsis acute organ dysfunction type: acute respiratory failure Acute respiratory failure type: with hypoxia Severe sepsis shock status: without septic shock Qualified Code(s): A41.9 - Sepsis, unspecified organism; R65.20 - Severe sepsis without septic shock; J96.01 - Acute respiratory failure with hypoxia Code(s): A41.9 - Sepsis, unspecified organism Status: Acute Assessment and Plan: Treated for community acquired pneumonia. Sepsis is hemodynamically stable and afebrile. (5) Acute kidney injury: Code(s): N17.9 - Acute kidney failure, unspecified Status: Acute Assessment and Plan: Creatinine is 1.3. Garrett creatinine during this admission 1.1. (6) Oxygen dependent: Code(s): Z99.81 - Dependence on supplemental oxygen Status: Acute Assessment and Plan: As below. (7) Nausea: Code(s): R11.0 - Nausea Status: Acute Assessment and Plan: Compazine and benadryl PRN Subjective Date/time seen: 01/16/21 15:39 Interval history: She reports that she is nauseous. She still has frequent episodes of coughing. She has been afebrile. She has not had a bowel movement since admission. Review of systems obtained through bill board poster services. Review of Systems Review of Systems: All systems reviewed & are unremarkable except as noted in HPI and below ROS unobtainable: Yes unobtainable due to medical condition Constitutional: Constitutional: Reports as per HPI and Reports no additional constitutional complaints Eyes: Eyes: Reports as per HPI and Reports no additional eye complaints ENT: Reports system reviewed and no additional complaints, except as documented Cardiovascular: Cardiovascular: Reports no additional cardiovascular complaints Respiratory: Respiratory: Reports no additional respiratory complaints and Reports no additional respiratory complaints Gastrointestinal: Gastrointestinal: Reports as per HPI and Reports no additional gastrointestinal complaints Musculoskeletal: Musculoskeletal: Reports no additional musculoskeletal complaints Integumentary/Breasts: Skin/Breast: Reports system reviewed and no additional complaints, except as docu and Reports as per HPI Neurologic:
[2021-01-16] MEDS: guaiFENesin/DEXTROMETHORPHAN 10 ML UDC 5 ML PO (18:06)
[2021-01-16] MEDS: guaiFENesin 12 HR 600 MG TABCR 1200 MG PO (20:13)
[2021-01-17] VITALS (18 sets, daily range): BP systolic 108–118; BP diastolic 46–54; PULSE 70–89; RESP 12–24; TEMP 36–37.1; O2SAT 94–98
[2021-01-17] MEDS: ALBUTEROL SULFATE NEB 2.5 MG/0.5 ML INH INHALATION ×3 (02:30→20:32)
[2021-01-17] MEDS: IPRATROPIUM BR 0.02% INH SOLN 0.5 MG/2.5 ML VIAL INHALATION ×3 (02:30→20:32)
[2021-01-17] MEDS: LEVOTHYROXINE SODIUM 125 MCG TABLET PO (05:46)
[2021-01-17] MEDS: CENTRAL LINE FLUSH 10 ML IV PUSH ×3 (05:46→20:03)
--- NOTE | 2021-01-17 10:00 | PC.NURSE ---
Morning assessment performed with the assistance of the Stratus. Hydroelectric Mechanic Radha #[id number] was used to ask patient questions about status, pain, breathing, bowel movements and overall feel. This nurse inquired if the patient had any questions or concerns at this time, per rug clipper no questions or concerns at this time. Assessment completed and Stratus disconnected.
[2021-01-17] MEDS: BUMETANIDE 0.5 MG TABLET PO (10:17)
[2021-01-17] MEDS: POTASSIUM CHLORIDE 20 MEQ TABLET.ER 40 MEQ PO (10:17)
[2021-01-17] MEDS: SIMVASTATIN 20 MG TABLET PO (10:17)
[2021-01-17] MEDS: FAMOTIDINE 20 MG TABLET PO ×2 (10:17→17:11)
[2021-01-17] MEDS: METOPROLOL TARTRATE 12.5 MG TABLET PO ×2 (10:18→20:02)
[2021-01-17] MEDS: guaiFENesin 12 HR 600 MG TABCR 1200 MG PO ×2 (10:18→20:02)
[2021-01-17] MEDS: SERTRALINE HCL 50 MG TABLET PO (10:18)
--- NOTE | 2021-01-17 13:45 | PM.IMPN ---
Progress Note: A&P Assessment and Plan (1) Community acquired pneumonia: Qualifiers: Laterality: unspecified laterality Qualified Code(s): J18.9 - Pneumonia, unspecified organism Code(s): J18.9 - Pneumonia, unspecified organism Status: Acute Assessment and Plan: The patient was initially started Primaxin and azithromycin. The patient white count has improved significantly. She is currently saturating well 97% on 1 liter. Currently on imipenem and azithromycin. Monitor wbc. (2) Congestive heart failure: Qualifiers: Heart failure chronicity: unspecified Heart failure type: unspecified Qualified Code(s): I50.9 - Heart failure, unspecified Code(s): I50.9 - Heart failure, unspecified Status: Acute Assessment and Plan: Patient was initially being treated for CHF exacerbation with Lasix drip which was discontinued on the . She did initially have experience acute renal injury but her creatinine has returned to near normal. Currently she appears to be euvolemic. Monitor creatinine. (3) Acute respiratory failure: Qualifiers: Respiratory failure complication: hypoxia Qualified Code(s): J96.01 - Acute respiratory failure with hypoxia Code(s): J96.00 - Acute respiratory failure, unspecified whether with hypoxia or hypercapnia Status: Acute Assessment and Plan: BIpap prn and oxygen slow improvement. Repeat chest Xray on 01/16/2021: Unchanged patchy bilateral airspace opacities and increasing consolidation at the left lung base which could represent atelectasis and/or pneumonia. Repeat chest Xray on 01/14/2021: Unchanged patchy bilateral airspace opacities and increasing consolidation at the left lung base which could represent atelectasis and/or pneumonia. . (4) Sepsis: Qualifiers: Acute respiratory failure type: with hypoxia Sepsis acute organ dysfunction status: with acute organ dysfunction Sepsis type: sepsis due to unspecified organism Severe sepsis acute organ dysfunction type: acute respiratory failure Severe sepsis shock status: without septic shock Qualified Code(s): A41.9 - Sepsis, unspecified organism; R65.20 - Severe sepsis without septic shock; J96.01 - Acute respiratory failure with hypoxia Code(s): A41.9 - Sepsis, unspecified organism Status: Acute Assessment and Plan: Treated for community acquired pneumonia. Sepsis is hemodynamically stable and afebrile. (5) Acute kidney injury: Code(s): N17.9 - Acute kidney failure, unspecified Status: Acute Assessment and Plan: Creatinine is 1.3. Garrett creatinine during this admission 1.1. Repeat creatinine today. (6) Oxygen dependent: Code(s): Z99.81 - Dependence on supplemental oxygen Status: Acute Assessment and Plan: As below. (7) Nausea: Code(s): R11.0 - Nausea Status: Acute Assessment and Plan: Compazine and benadryl PRN 30 minutes before meals. Additional Plan The patient initially had me accord pneumonia with left greater than right lower lobe infiltrates. The patient was initially started Primaxin and azithromycin. The patient white count has improved significantly. We can likely deescalate the patient's antibiotic therapy as she received 6 doses with tomorrow being 7th dose of antibiotics. She is down to 1 L nasal cannula. She was initially being treated for CHF exacerbation with Lasix drip which was discontinued on the . She did initially have acute renal injury but her creatinine has returned to near normal. I suspect patient has some baseline chronic kidney disease. The patient is medically stable. Subjective Date/time seen: 01/17/21 13:45 Interval history: S: She reports that she is producing a lot of phlegm and does not want to eat. She still has frequent episodes of coughing, with consecutive. She has been afebrile. She had a large bowel movement last night and thi
[2021-01-17] MEDS: BENZONATATE 100 MG CAPSULE 200 MG PO (14:23)
[2021-01-17] MEDS: guaiFENesin/DEXTROMETHORPHAN 10 ML UDC 5 ML PO (14:24)
[2021-01-17] MEDS: GLYCOPYRROLATE 1 MG TABLET PO (17:11)
--- NOTE | 2021-01-17 18:49 | PC.NURSE ---
Evening rounds performed, the stratus was used to inquire if the patient was feeling okay, any shortness of breath, pain, needs along with questions and concerns. Per sole conforming machine operator the patient was feeling fine a little tired from exercises but overall was doing well. Motorcycle Sales Associate Iván #[id number] was used to communicate with the patient.
[2021-01-17 18:52] LABS: Hematocrit 29.3 % (37.0-47.0); Hemoglobin 9.6 g/dL (12.0-15.0); Mean Corpuscular HGB Conc 32.8 g/dl (32-36); Mean Corpuscular Hemoglobin 30.6 pg (26-34); Mean Corpuscular Volume 93.3 fl (80-100); Mean Platelet Volume 9.2 fl (7.4-10.4); Platelet Count Result 280 k/mm3 (150-375); Red Blood Count 3.14 M/mm3 (4.2-5.4); Red Cell Distribution Width 13.5 % (11.5-14.5); White Blood Count 13.3 K/mm3 (4.5-10.0)
[2021-01-17] MEDS: ACETAMINOPHEN 325 MG TABLET 650 MG PO (18:59)
[2021-01-17 19:02] LABS: Anion Gap 8 mmol/L (8-16); Blood Urea Nitrogen 32 mg/dL (7-17); Carbon Dioxide 36 mmol/L (22-30); Chloride 92 mmol/L (98-107); Estimated CRCL calculation 53 ml/min; Estimated Glomerular Filt Rate 54; Glucose 121 mg/dL (65-110); Potassium 4.6 mmol/L (3.4-5.0); Sodium 136 mmol/L (137-145)
[2021-01-18] VITALS (18 sets, daily range): BP systolic 122–130; BP diastolic 46–55; PULSE 70–92; RESP 12–26; TEMP 36.3–36.8; O2SAT 91–98
[2021-01-18] MEDS: IPRATROPIUM BR 0.02% INH SOLN 0.5 MG/2.5 ML VIAL INHALATION ×3 (02:15→13:25)
[2021-01-18] MEDS: ALBUTEROL SULFATE NEB 2.5 MG/0.5 ML INH INHALATION ×3 (02:15→13:25)
[2021-01-18] MEDS: CENTRAL LINE FLUSH 10 ML IV PUSH ×2 (05:29→13:48)
[2021-01-18] MEDS: LEVOTHYROXINE SODIUM 125 MCG TABLET PO (05:30)
[2021-01-18 07:00] LABS: Basophils Absolute Auto 0.1 K/mm3 (0.0-0.1); Basophils Percent Auto 0.6 % (0.2-1.2); Eosinophils Absolute Auto 0.6 K/mm3 (0-0.3); Eosinophils Percent Auto 5.5 % (0-4.4); Hematocrit 28.3 % (37.0-47.0); Hemoglobin 9.5 g/dL (12.0-15.0); Immature Granulocyte Absolute 0.19 K/mm3 (0.00-0.031); Immature Granulocyte Percent A 1.9 % (0-0.5); Lymphocytes Absolute Auto 2.01 K/mm3 (0.9-3.2); Lymphocytes Percent Auto 19.8 % (18.3-44.2); Mean Corpuscular HGB Conc 33.6 g/dl (32-36); Mean Corpuscular Hemoglobin 31.5 pg (26-34); Mean Corpuscular Volume 93.7 fl (80-100); Mean Platelet Volume 9.4 fl (7.4-10.4); Monocytes Absolute Auto 0.4 K/mm3 (0.1-0.6); Monocytes Percent Auto 3.7 % (2.6-8.5); Neutrophils Absolute Auto 6.9 K/mm3 (1.3-6.7); Neutrophils Percent Auto 68.5 % (45.5-73.1); Platelet Count Result 285 k/mm3 (150-375); Red Blood Count 3.02 M/mm3 (4.2-5.4); Red Cell Distribution Width 14.1 % (11.5-14.5); White Blood Count 10.1 K/mm3 (4.5-10.0)
[2021-01-18] MEDS: METOPROLOL TARTRATE 12.5 MG TABLET PO (08:10)
[2021-01-18] MEDS: GLYCOPYRROLATE 1 MG TABLET PO (08:10)
[2021-01-18] MEDS: SIMVASTATIN 20 MG TABLET PO (08:10)
[2021-01-18] MEDS: SERTRALINE HCL 50 MG TABLET PO (08:10)
[2021-01-18] MEDS: BUMETANIDE 0.5 MG TABLET PO (08:10)
[2021-01-18] MEDS: BENZONATATE 100 MG CAPSULE 200 MG PO (08:10)
[2021-01-18] MEDS: guaiFENesin 12 HR 600 MG TABCR 1200 MG PO (08:10)
[2021-01-18] MEDS: FAMOTIDINE 20 MG TABLET PO (08:10)
[2021-01-18] MEDS: POTASSIUM CHLORIDE 20 MEQ TABLET.ER 40 MEQ PO (08:10)
[2021-01-18 09:36] LABS: Anion Gap 7 mmol/L (8-16); Blood Urea Nitrogen 27 mg/dL (7-17); Calcium 10.1 mg/dL (8.4-10.2); Carbon Dioxide 36 mmol/L (22-30); Chloride 92 mmol/L (98-107); Estimated CRCL calculation 53 ml/min; Estimated Glomerular Filt Rate 54; Glucose 113 mg/dL (65-110); Potassium 4.4 mmol/L (3.4-5.0); Sodium 135 mmol/L (137-145)
--- NOTE | 2021-01-18 12:52 | HOMEO2EVAL ---
Evaluation was performed at [facility] Home Oxygen Evaluation RC: Home Oxygen (O2) Evaluation Start: 01/18/21 11:26 Freq: ONCE Status: Active Protocol: RPE Activity Type Activity Date Activity User E-Sign Co-Sign Detail Recorded Client Recorded Date Recorded By Document 01/18/21 11:49 KRM [email or web address] 01/18/21 12:52 KRM Document 01/18/21 12:51 KRM [email or web address] 01/18/21 12:52 KRM 01/18/21 01/18/21 11:49 12:51 Home O2 Evaluation Test Phase Resting Resting Oxygen Delivery Room Air Room Air Pulse Oximetry (90-100 %) 91 91 Pulse Rate (60-100 beats/min) 73 77 Home Oxygen Evaluation Comments PHYSICAL THERAPY IN THE ROOM. PT. NOT ABLE TO AMBULATE AT THIS TIME. RN AWARE. NO OXYGEN NEEDED AT HOME. Treatment Charges O2 Evaluation - Inpatient
--- NOTE | 2021-01-18 15:02 | PM.DS ---
DS: Admitting Diagnosis Discharge Date 01/18/2021 Admitting Diagnosis Acute respiratory failure DS: Discharge Diagnosis Discharge Diagnosis (1) Community acquired pneumonia: Qualifiers: Laterality: unspecified laterality Qualified Code(s): J18.9 - Pneumonia, unspecified organism Code(s): J18.9 - Pneumonia, unspecified organism Status: Acute Assessment and Plan: The patient was initially started on Primaxin and azithromycin. The patient improved clinically; her white count has improved significantly. Her oxygen requirements improved and she was discharged on room air on a 7-day course of oral levofloxacin. (2) Congestive heart failure: Qualifiers: Heart failure chronicity: unspecified Heart failure type: unspecified Qualified Code(s): I50.9 - Heart failure, unspecified Code(s): I50.9 - Heart failure, unspecified Status: Acute Assessment and Plan: Patient was initially being treated for CHF exacerbation with Lasix drip which was discontinued on the . She did initially have experience acute renal injury but her creatinine has returned to near normal. Currently she appears to be euvolemic. Monitor creatinine. Repeat chemistry with PCP as an outpatient. (3) Acute respiratory failure: Qualifiers: Respiratory failure complication: hypoxia Qualified Code(s): J96.01 - Acute respiratory failure with hypoxia Code(s): J96.00 - Acute respiratory failure, unspecified whether with hypoxia or hypercapnia Status: Acute Assessment and Plan: Patient was maintained on BIPAP prn and oxygen with slow improvement of her respiratory status. Incentive spirometry was encouraged. Repeat chest Xray on 01/16/2021: Unchanged patchy bilateral airspace opacities and increasing consolidation at the left lung base which could represent atelectasis and/or pneumonia. Repeat chest Xray on 01/14/2021: Unchanged patchy bilateral airspace opacities and increasing consolidation at the left lung base which could represent atelectasis and/or pneumonia. . (4) Sepsis: Qualifiers: Acute respiratory failure type: with hypoxia Sepsis acute organ dysfunction status: with acute organ dysfunction Sepsis type: sepsis due to unspecified organism Severe sepsis acute organ dysfunction type: acute respiratory failure Severe sepsis shock status: without septic shock Qualified Code(s): A41.9 - Sepsis, unspecified organism; R65.20 - Severe sepsis without septic shock; J96.01 - Acute respiratory failure with hypoxia Code(s): A41.9 - Sepsis, unspecified organism Status: Acute Assessment and Plan: Treated for community acquired pneumonia. She is hemodynamically stable and afebrile. (5) Acute kidney injury: Code(s): N17.9 - Acute kidney failure, unspecified Status: Acute Assessment and Plan: Creatinine is 1.3. Garrett creatinine during this admission 1.1. Repeat creatinine today is 1 at the time of discharge. (6) Oxygen dependent: Code(s): Z99.81 - Dependence on supplemental oxygen Status: Acute Assessment and Plan: Home oxygen requirement test was administered and patient will not require home oxygen. (7) Nausea: Code(s): R11.0 - Nausea Status: Acute Assessment and Plan: Compazine and benadryl were administered PRN 30 minutes before meals. DS: Summary Hospital Course Reason for hospitalization: Chief Complaint: nausea with weakness Hospital Course: This is a 75-year-old female patient who is [place]-speaking and lethargic at presentation. The daughter was at the bedside in the emergency room and provided the information. Patient had not been eating very well for 2 days prior to presentation. The patient had increased productive cough and some generalized weakness as well as lethargy over 48 hours prior to admission. The patient has been fully vaccinated for COVID-19 with the [employer]
[2021-01-18] MEDS: NEOMYCIN/POLYMYXIN/BACITRACIN OINTMENT PACKET 1 PACKET (15:15)
== END 2021-01-18 18:08 | disposition home health service (06) | DRG 871 ==
LOC: ANHED 14:00 → ANHICU 15:33 → ANH2MED 01-18 11:34 → ANHICU 01-19 11:52 → ANHIMU 01-19 11:52
PROVIDERS: Internal Medicine; Admitting Provider Family Medicine; Emergency Provider Emergency Medicine; PCP Nurse Practitioner Family; Visit Provider Internal Medicine
DX: A41.9 Sepsis, unspecified organism (principal); J18.9 Pneumonia, unspecified organism; J96.21 Acute and chronic respiratory failure with hypoxia; I21.A1 Myocardial infarction type 2; Z68.43 Body mass index [BMI] 50.0-59.9, adult; N17.9 Acute kidney failure, unspecified; N39.0 Urinary tract infection, site not specified; E66.2 Morbid (severe) obesity with alveolar hypoventilation; E87.1 Hypo-osmolality and hyponatremia; R65.20 Severe sepsis without septic shock; Z20.822 Contact with and (suspected) exposure to COVID-19; I11.0 Hypertensive heart disease with heart failure; I50.9 Heart failure, unspecified; F32.A Depression, unspecified; F41.9 Anxiety disorder, unspecified; E86.0 Dehydration; E03.9 Hypothyroidism, unspecified; E83.42 Hypomagnesemia; E78.5 Hyperlipidemia, unspecified; D64.9 Anemia, unspecified; Z96.659 Presence of unspecified artificial knee joint; Z66 Do not resuscitate; Z90.49 Acquired absence of other specified parts of digestive tract; Z99.81 Dependence on supplemental oxygen; B96.20 Unspecified Escherichia coli [E. coli] as the cause of diseases classified elsewhere
CPT/HCPCS: 36415; 36430; 36569; 36600; 71045; 71250; 76775; 80048; 80053; 80076; 81001; 82375; 82550; 82728; 82805; 82948; 83036; 83050; 83540; 83550; 83605; 83735; 83880; 84100; 84443; 84484; 85014; 85018; 85025; 85027; 85610; 85730; 86850; 86900; 86901; 86920; 87040; 87070; 87077; 87086; 87088; 87186; 87205; 87420; 87804; 93005; 93306; 94002; 94003; 94618; 94640; 94660; 96361; 96365; 97110; 97163; 97166; 97530; 97535; 99285; A9270; C1751; C8929; C9803; J0456; J0696; J0743; J1200; J1650; J1940; J2405; J2997; J3475; J7030; J7050; P9016; P9047; Q9957; U0003; U0005

== ENCOUNTER 2024-08-15 08:30 | Emergency (ER) | payer MEDICARE, MEDICAID, SELFPAY ==
[2024-08-15 08:46] VITALS: BP 155/58; PULSE 58; RESP 16; TEMP 36.2; O2SAT 96
--- NOTE | 2024-08-15 08:49 | ED_ITS ---
HPI - Extremity Problem General Chief complaint: Extremity Problem,Nontraumatic Stated complaint: Right Foot Toe Pain Source: patient Mode of arrival: ambulatory Limitations: no limitations History of Present Illness HPI Narrative: Patient is a 79-year-old female who presents to the clinic with complaints of toe pain to the right third toe since this morning. Denies any injury or fevers. Related Data Home Medications Medication Instructions Recorded Confirmed Last Taken Type albuterol sulfate 90 mcg/actuation 1 - 2 puff inhalation Q4-6H PRN 01/09/21 01/09/21 Unknown History aerosol inhaler Shortness Of Breath aspirin 81 mg tablet,delayed 81 mg PO DAILY 01/09/21 01/09/21 Unknown History release benzonatate 200 mg capsule 200 mg PO TID PRN Cough 01/09/21 01/09/21 Unknown History bumetanide 0.5 mg tablet 0.5 mg PO BID 01/09/21 01/09/21 Unknown History calcium 600 mg (as 1 tablet PO DAILY 01/09/21 01/09/21 Unknown History carbonate)-vitamin D3 10 mcg (400 unit) tablet famotidine 20 mg tablet 20 mg PO BID 01/09/21 01/09/21 Unknown History levothyroxine 125 mcg tablet 125 mcg PO DAILY 01/09/21 01/09/21 Unknown History lisinopril 20 mg tablet 20 mg PO DAILY 01/09/21 01/09/21 Unknown History sertraline 50 mg tablet 50 mg PO DAILY 01/09/21 01/09/21 Unknown History simvastatin 20 mg tablet 20 mg PO HS 01/09/21 01/09/21 Unknown History diclofenac sodium 75 mg mg PO 08/15/24 Unknown History tablet,delayed release Allergies Allergy/AdvReac Type Severity Reaction Status Date / Time codeine Allergy Unknown Nervousness Verified 08/15/24 08:44 Review of Systems Review of Systems: CONSTITUTIONAL: Denies body aches, fever, chillsEYES: Denies visual changes ENT: Denies rhinorrhea, congestion CARDIOVASCULAR: Denies chest pain, palpitations, or edema. RESPIRATORY: Denies cough or dyspnea. SKIN: Denies rash, itching, or wounds. MUSCULOSKELETAL: Denies back pain, joint pain, or myalgia. Reports toe pain to right third toe. NEUROLOGIC: Denies headache, numbness, tingling, or weakness. All systems reviewed & are unremarkable except as noted in HPI and below PMFSH Past Medical History Medical History Anxiety and depression Hypertension Hypothyroidism Oxygen dependent Surgical History Surgical History H/O tubal ligation Hx of cholecystectomy Total knee replacement status Family History Family History Unknown Family history unknown Social History Social History Social History: patient's daughter Lily carmen is a durable power assistant prosecuting attorney for healthcare. The patient is a DNR /DNI. The patient has 4 children. The patient lives with her durable power assistant prosecuting attorney for healthcare. The patient is from her . She was a homemaker. She is a lifelong nonsmoker does not use any alcohol marijuana or illicit drugs. Smoking status: Never smoker Alcohol intake: never Substance use: never Spiritual care concerns: No Comments At time of signature, I have reviewed and agree with nursing past medical, surgical, social and family history unless otherwise noted. Please see nursing chart for further information. There is no relevant family history pertinent to the presenting complaint. Exam Narrative: MUSCULOSKELETAL EXAM GENERAL: Well-appearing, well-nourished, and in no acute distress. HEAD: Normocephalic, atraumatic. NECK: Supple. CHEST: Speaks in full sentences. No respiratory distress. HEART: Regular rate and rhythm. Normal and equal peripheral pulses. EXTREMITIES: Right third toe has normal strength and sensation, but endorses pain with movement. Edema and Erythema noted. Capillary refill less than 3 seconds. Distal sensation intact. SKIN: Warm, dry, no rash. NEURO: Alert and oriented x3. PSYCH: Normal mood and affect Course Course Level of Care: Express Care Visit Vital Signs Vital signs: Vital Signs Temperature 97.2 F L 08/15/24 08:46 Pulse Rate 58 L 08/15/24 08:46 Respiratory Rate 16 08/15/24 08:46 Blood Pressure 155/58 H 08/15/24 08:46 Pulse Oximetry 96 08/15/24 08:46 Oxygen Delivery Room Air 08/15/24 08:46 Temperature 97.2 F L 05/14/25 08:46 Pulse Rate 58 L 08/15/24 08:46 Respiratory Rate 16 08/15/24 08:46 Blood Pressure 155/58 H 08/15/24 08:46 Pulse Oximetry 96 08/15/24 08:46 Oxygen Delivery Room Air 08/15/24 08:46 Reviewed. Procedures Abscess I/D right third toe: Date of Incision: 08/15/24 Time of Incision: 09:00 Side (if applicable): right Sedation/analgesia: none Local Anesthetic: none Technique: incised with #11 blade Irrigation: No Packing used?: none I&D Results: Pus Abcess I&D Additional Comments: Cleaned with betadine swabs. Culture obtained. MDM - Extremity (Nontraumatic) MDM Narrative Medical decision making narrative: Discussed physical exam findings. Antibiotic for Paronychia. Advised supportive measures and signs/symptoms to go to the ER. Pt is appropriate for outpatient treatment and follow up. Critical Care Time Critical Care Time Critical Care Time: No Discharge Plan Discharge Clinical Impression: Paronychia of third toe of right foot Patient Disposition: Home Condition: Stable Instructions: Antibiotic Form, Paronychia (ED) Additional Instructions: Soak your nail in warm soapy water 3 or 4 times each day. This can help with any additional drainage that needs to come out. This will help decrease swelling and pain. Apply lotion after you wash your hands to prevent your skin from becoming too dry. Tylenol as needed for pain Take antibiotic as directed Please follow-up with your primary care doctor in the next 1-2 days. If you cannot follow-up with your primary care doctor please go to the ED for any urgent issues. Patient Language: Ghanaian Prescriptions: New amoxicillin-pot clavulanate 875-125 mg tablet 1 tablet PO Q12H 7 Days Qty: 14 0RF No Action diclofenac sodium 75 mg tablet,delayed release (DR/EC) PO benzonatate 200 mg capsule 200 mg PO TID PRN (Reason: Cough) lisinopril 20 mg tablet 20 mg PO DAILY aspirin 81 mg tablet,delayed release (DR/EC) 81 mg PO DAILY famotidine 20 mg tablet 20 mg PO BID simvastatin 20 mg tablet 20 mg PO HS levothyroxine 125 mcg tablet 125 mcg PO DAILY albuterol sulfate 90 mcg/actuation HFA aerosol inhaler 1 - 2 puff INHALATION Q4-6H PRN (Reason: Shortness Of Breath) sertraline 50 mg tablet 50 mg PO DAILY calcium carbonate-vitamin D3 600 mg(1,500mg) -400 unit tablet 1 tablet PO DAILY bumetanide 0.5 mg tablet 0.5 mg PO BID acetaminophen [Mapap (acetaminophen)] 325 mg Tablet 650 mg PO Q8H PRN (Reason: pain 5 or less or fever) Qty: 30 0RF docusate sodium 100 mg Capsule 100 mg PO Q12H PRN (Reason: Constipation) Qty: 30 0RF furosemide [Lasix] 40 mg tablet 40 mg PO DAILY Qty: 30 0RF metoprolol succinate [Toprol XL] 25 mg tablet extended release 24 hr 25 mg PO DAILY Qty: 30 0RF levofloxacin 750 mg tablet 750 mg PO DAILY Qty: 7 0RF Follow-up/Referrals: Johnathon,KIESHA Downs [Primary Care Provider] - Time of Disposition: 09:09
== END 2024-08-15 09:20 | disposition home or self-care (01) ==
PROVIDERS: PCP Nurse Practitioner Family
DX: L03.031 Cellulitis of right toe (principal); I10 Essential (primary) hypertension; E03.9 Hypothyroidism, unspecified; Z99.81 Dependence on supplemental oxygen; F41.9 Anxiety disorder, unspecified; F32.A Depression, unspecified; Z79.82 Long term (current) use of aspirin; Z66 Do not resuscitate
CPT/HCPCS: 10060; 87070; 87075; 87205; 99213; G0463